=== PATIENT | female | born 1970 | race Caucasian/White ===

== ENCOUNTER 2018-07-30 05:16 | Emergency (ER) | payer MEDICAID, SELFPAY ==
[2018-07-30 05:17] VITALS: BP 180/108; PULSE 87; RESP 24; TEMP 36.8; O2SAT 95; BMI 57.9
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
[2018-07-30] MEDS: Naproxen 500 MG Tablet PO (05:38)
== END 2018-07-30 05:51 | disposition home or self-care (01) ==
PROVIDERS: Emergency Provider Emergency Medicine
DX: M23.91 Unspecified internal derangement of right knee (principal)
CPT/HCPCS: 99284

== ENCOUNTER 2018-11-27 10:29 | Emergency (ER) | payer MEDICAID, SELFPAY ==
[2018-11-27] VITALS (8 sets, daily range): BP systolic 170; BP diastolic 113; PULSE 87–100; RESP 14–22; TEMP 36.4; O2SAT 94–98; BMI 59.4
--- NOTE | 2018-11-27 10:48 | ED.DCSUM_ITS ---
- ER Visit Summary Date of Service: 11/27/18 Chief Complaint: Shortness of breath History of Present Illness: The patient is a 48 F with shortness of breath for the past 3-4 days. She had upper airway congestion which usually triggers her asthma, similar things happen this time. Last asthma exacerbation was 2 years ago. Physical Examination: Not appear in acute distress. She is speaking in full sentences. Her blood pressure is elevated. Moist mucous membranes, no obvious facial deformity No C-spine tenderness supple neck. Regular rate and rhythm without any obvious murmurs Bilateral wheezing, speaks in full sentences without severe respiratory distress Abdomen soft and nontender no guarding or rebound Moves all extremities without any difficulty or pain. Skin does not show any obvious rashes or lesions, no trauma. Alert oriented ?3 with no gross focal deficit Emergency Department Course and Treatment: She received nebulizers, she improved prednisone was given in the ED. I will give her prednisone for home. I believe she had an upper respiratory infection which caused her asthma exacerbation. She appears well and she will be discharged in stable condition. She did have high blood pressure in the ED and she was told to watch this so she can tell her physician and address it. Discharge stable condition Impression: [Asthma exacerbation] This note was generated with [employer] dictation software. It may contain incorrect words, spelling, and punctuation that were not noted in review of the chart prior to signing ED Disposition - Plan for ED Patient: Disposition: Home or Assisted Living Chief Complaint: Asthma Instructions: ED Reactive Airway Disease Prescriptions: Prednisone 60 mg PO DAILY #12 tab Referrals: [facility],Out of [NON-STAFF] - 5-7 Days
[2018-11-27] MEDS: Ipratropium/Albuterol Sulfate 3 ML AMPUL.NEB INHALATION ×2 (10:50→12:04)
[2018-11-27] MEDS: Albuterol 2.5 MG/3 ML VIAL.NEB. INHALATION ×3 (10:51→11:25)
[2018-11-27] MEDS: predniSONE 20 MG Tablet 60 MG PO (12:35)
== END 2018-11-27 12:39 | disposition home or self-care (01) ==
PROVIDERS: Emergency Provider Emergency Medicine
DX: J45.901 Unspecified asthma with (acute) exacerbation (principal); Z79.51 Long term (current) use of inhaled steroids
CPT/HCPCS: 94640; 99283

== ENCOUNTER 2019-07-18 13:31 | Emergency (ER) | payer MEDICAID, SELFPAY ==
[2018-11-27 10:31] VITALS: BMI 59.4
[2019-07-18 13:35] VITALS: BP 174/115; PULSE 101; RESP 18; TEMP 36.8; O2SAT 95; BMI 59.8
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
[2019-07-18 15:09] VITALS: BP 132/76; PULSE 76; RESP 18; O2SAT 99
== END 2019-07-18 15:10 | disposition home or self-care (01) ==
PROVIDERS: Emergency Provider Emergency Medicine
DX: S40.012A Contusion of left shoulder, initial encounter (principal); E66.9 Obesity, unspecified; K21.9 Gastro-esophageal reflux disease without esophagitis; Z87.891 Personal history of nicotine dependence; V43.62XA Car passenger injured in collision with other type car in traffic accident, initial encounter; Y93.I9 Activity, other involving external motion; Y92.89 Other specified places as the place of occurrence of the external cause; Y99.8 Other external cause status
CPT/HCPCS: 73030; 99284

== ENCOUNTER 2019-12-10 13:43 | Emergency (ER) | payer MEDICAID, SELFPAY ==
[2019-12-10 13:47] VITALS: BP 160/144; PULSE 109; RESP 20; TEMP 36.8; O2SAT 96; BMI 60.9
--- NOTE | 2019-12-10 14:30 | ED.DCSUM_ITS ---
- ER Visit Summary Date of Service: 12/10/19 Chief Complaint: [Sore throat] History of Present Illness: The patient is a 49 F [presents to the emergency department complaint of a sore throat x5 days. Patient also complains of nasal congestion. She is complaining of some ear pain bilaterally. She denies any fevers. Patient denies sick contacts. She has minimal cough.] Physical Examination: [HEENT-PERRLA, EOMI. Cranial nerves II through XII grossly intact. TMs clear. Mucous membranes moist. No adenopathy. Patient has mild pharyngeal erythema. Patient has edema of both nasal turbinates right greater than left. The midline and no trismus noted. Cardiovascular-regular rate and rhythm without murmur or ectopy Lungs-clear to auscultation, chest wall stable without crepitus or subcu emphysema Abdomen-normoactive bowel sounds, soft, nontender, no rebound or rigidity, no peritoneal signs. Extremities-intact ?4, normal range of motion, normal pulses, atraumatic] Test Results: [Rapid strep screen was negative.] Emergency Department Course and Treatment: [] Treatment Plan: [Patient will be given a prescription for Flonase nasal spray. Advised to push fluids.] Disposition: [Discharged home in stable condition] Impression: [Viral URI Nasal congestion] This note was generated with [employer] dictation software. It may contain incorrect words, spelling, and punctuation that were not noted in review of the chart prior to signing ED Disposition - Plan for ED Patient: Referrals: [facility] Doctor,Out of [Primary Care Provider] -
--- NOTE | 2019-12-10 14:32 | DCINST.ED_ITS ---
ED Disposition - Plan for ED Patient: Instructions: PHARYNGITIS, Viral Prescriptions: Fluticasone 0.05% [Flonase Nasal [place]] 1 spray NASAL BID #1 bottle Transmission Status: Pending to [facility] Referrals: [facility] Doctor,Out of [Primary Care Provider] - 3-5 Days
[2019-12-10 14:52] VITALS: BP 148/105; PULSE 87; RESP 18; O2SAT 97
== END 2019-12-10 14:53 | disposition home or self-care (01) ==
LOC: ED 14:08
PROVIDERS: Emergency Provider Emergency Medicine
DX: J06.9 Acute upper respiratory infection, unspecified (principal); R09.81 Nasal congestion; J45.909 Unspecified asthma, uncomplicated; Z79.51 Long term (current) use of inhaled steroids
CPT/HCPCS: 87880; 99282

== ENCOUNTER 2021-03-10 14:32 | Emergency (ER) | payer MEDICAID, SELFPAY ==
[2021-03-10 14:34] VITALS: BP 152/109; PULSE 72; RESP 18; TEMP 36.8; O2SAT 94; BMI 58.4
[2021-03-10 15:47] VITALS: PULSE 77; RESP 18; O2SAT 100
--- NOTE | 2021-03-10 15:56 | ED.VIS.DYS ---
History of Present Illness Chief Complaint: Asthma Informant: Patient Onset: 03-03 Activity at onset: Exertion Timing: Intermittent Quality: Wheezing Current Severity: Mild Maximum Severity: Moderate Worsened by: Exertion Relieved by: Albuterol, Rest Associated Symptoms: Cough - minor [employer]. Negative for: Fever Chest Pain: Tightness - when wheezing Narrative: 50-year-old female feels like she is having asthma symptoms for the last several days. She had this happen last year 2 in the spring, unknown if she has seasonal allergies or not. She denies any fevers, chills, headaches, COVID-19 exposure, COVID-19 history, she had the first COVID-19 vaccine 3 weeks ago and is due for the second 1 later this week. She denies any swelling in her legs. - Past Medical History (1) Asthma Status: Chronic Past Medical History - Allergies and Home Meds Allergies/Adverse Reactions: Allergies No Known Allergies Allergy (Verified 03/10/21 14:38) Primary Care Physician: [facility] [address] Doctor,Out of [Primary Care Provider] - Smoking Status: Former smoker Review of Systems General: Denies: Chills, Fever, Sweats Eyes: Denies: Visual changes - bilaterally, Diplopia ENT: Denies: Bilateral ear pain, Rhinorrhea, Sore throat Cardiovascular: Reports: Chest pain - Tightness when wheezing, feels like asthma. Denies: Palpitations Respiratory: Reports: Dyspnea, Cough, Dyspnea on exertion. Denies: Sputum, Orthopnea Gastrointestinal: Denies: Abdominal pain, Nausea, Vomiting, Diarrhea, Melena, Hematochezia Genitourinary: Denies: Dysuria, Hematuria, Frequency Musculoskeletal: Denies: Back pain, Swelling, Extremity Pain Skin: Denies: Rash, Wounds Neurological: Denies: Headache, Weakness, Numbness Physical Exam Vital Signs/Narrative: Vital Signs Temp Pulse Resp BP Pulse Ox 03/10/21 15:47 77 18 100 03/10/21 14:34 98.2 F 72 18 152/109 H 94 Inital Vital Signs reviewed: Yes General: Well nourished, Well developed, Obese, No Acute Distress - Conversive in full sentences Head: Normocephalic, Atraumatic Eyes: Perrl, EOMI ENT: Moist mucous membranes, No rhinorrhea Neck: Supple, Nontender, No JVD Cardiovascular: Regular rate, Regular rhythm, No murmurs. Negative for: Tachycardia Respiratory: No distress, Chest nontender, Wheezing - Very slight end expiratory, symmetric. Negative for: Rales, Rhonchi Abdomen: Soft, Nontender, Nondistended, Normal bowel sounds Back: Nontender, Normal Inspection Extremities: Nontender, No edema Skin: Normal color, No rash, No Trauma Neurological: Alert, Oriented x3, Cranial nerves II-XII grossly intact, Normal Strength, Normal Sensation, Normal Gait Psychological: Normal affect, Normal Mood Diagnostic/Tx/Re-eval - Medical Decision Making Patient is comfortable with a prescription for prednisone and close outpatient follow-up. She has an albuterol inhaler, there was a nursing note indicating that she needed a prescription, she states that is incorrect. We discussed reasons to return and she is comfortable with that plan. She was also given a prescription for cetirizine to help in case this is allergy-related. ED Disposition - Plan for ED Patient: Disposition: Home or Assisted Living Diagnosis: Asthma exacerbation Instructions: ED Asthma, Acute (Adult) Prescriptions: Cetirizine HCl [Allergy Relief] 10 mg PO DAILY #30 capsule Transmission Status: Pending to [facility] Prednisone [Deltasone] 40 mg PO DAILY #10 tablet Transmission Status: Pending to [facility] Referrals: [facility] [address] Doctor,Out of [Primary Care Provider] - 3-5 Days if not improving Additional Instructions: Prescription for prednisone: Start tomorrow Prescription for cetirizine: Take 1 daily, if your asthma is flared up due to allergies, this should help suppress
[2021-03-10] MEDS: predniSONE 20 MG Tablet 40 MG PO (16:16)
== END 2021-03-10 16:56 | disposition home or self-care (01) ==
LOC: ED 16:12
PROVIDERS: Emergency Provider Emergency Medicine
DX: J45.901 Unspecified asthma with (acute) exacerbation (principal); Z87.891 Personal history of nicotine dependence; E66.9 Obesity, unspecified
CPT/HCPCS: 99283

== ENCOUNTER 2021-07-11 16:07 | Emergency (ER) | payer MEDICAID, SELFPAY ==
[2021-07-11 16:09] VITALS: BP 135/64; PULSE 79; RESP 16; TEMP 36.2; O2SAT 97; BMI 52.7
--- NOTE | 2021-07-11 18:05 | EX.ED.DYSGE1 ---
HPI History of Present Illness Chief Complaint: GI Bleed Detail of Chief Complaint: Rectal bleeding Informant: patient Onset/Context/Timing Onset: Weeks Narrative Narrative: Patient presents with 2-week history of rectal pain. She states 4 days into her symptoms she had some rectal bleeding that resolved. Today she passed more blood rectally. No abdominal pain or cramping. She reports a history of hemorrhoids years ago. She had a colonoscopy 2 months ago that was unremarkable. [facility] Medical History Asthma Home Medications Symbicort 160-4.5 Mcg Inhaler 2 puff INHALATION DAILY 11/27/18 [History Last Taken 12/09/19] albuterol sulfate [Ventolin Hfa (SP)] 1 - 2 puff INHALATION Q4H PRN PRN 11/27/18 [History Last Taken 12/09/19] naproxen 500 mg PO BID PRN #20 tab 07/18/19 [Rx Last Taken 12/09/19] cyclobenzaprine 5 mg PO DAILY 12/10/19 [History Last Taken 12/09/19] fluticasone propionate 1 spray NASAL BID #1 bottle 12/10/19 [Rx Last Taken Unknown] pantoprazole 40 mg PO DAILY 12/10/19 [History Last Taken 12/09/19] pseudoephedrine HCl 240 mg PO DAILY 12/10/19 [History Last Taken 12/09/19] cetirizine 10 mg PO DAILY #30 capsule 03/10/21 [Rx Last Taken Unknown] prednisone 40 mg PO DAILY #10 tablet 03/10/21 [Rx Last Taken Unknown] hydrocortisone acetate [Anusol-HC] 25 mg IL BID PRN #6 ea 07/11/21 [Rx Last Taken Unknown] Allergy/AdvReac Type Severity Reaction Status Date / Time No Known Allergies Allergy Verified 07/11/21 16:10 Social History Smoking Status: Light Smoker (<10/day) ROS ROS ED Constitutional Constitutional ED: Denies chills or fever(s) Eyes Eyes: Denies change in vision ENT ENT ED: Denies sore throat Cardiovascular Cardiovascular: Denies chest pain Respiratory/Chest Respiratory/Chest: Denies cough or dyspnea Gastrointestinal Gastrointestinal: Reports other Details: Rectal pain ; Denies abdominal pain, diarrhea, nausea or vomiting Genitourinary Genitourinary ED: Denies dysuria Musculoskeletal Musculoskeletal: Denies back pain Integumentary Denies rash Neurologic Neurologic: Denies headache(s) or weakness Psychiatric Psychiatric: Denies anxiety or depression Allergic/Immunologic Allergic/Immunologic ED: Denies urticaria EXAM Physical Exam Const Vital Signs: 07/11/21 16:09 Temperature 97.2 F L Temperature Source Temporal Pulse Rate 79 Respiratory Rate 16 Blood Pressure 135/64 H Blood Pressure Mean 87 Pulse Ox 97 Oxygen Delivery Method Room Air Positive well nourished and well developed General Appearance ED: well developed HEENT Reports normocephalic and head/scalp atraumatic Eyes PERRL and EOMs intact bilaterally Neck supple Chest Wall inspection of chest normal and palpation of chest normal Resp normal respiratory effort and clear to auscultation bilaterally Cardio regular rate and regular rhythm GI normal to inspection, nondistended, normoactive bowel sounds GI Narrative: Rectal exam reveals a very small noninflamed hemorrhoid externally. No obvious blood. Palpation: soft Back/Spine no CVA tenderness Extremity normal to inspection Neuro oriented x3 and no sensory deficits noted Sensorium / Orientation: alert Motor Exam: strength 5/5 throughout Psych mental status grossly normal Skin no rashes or lesions noted MDM MDM MDM Narrative Medical decision making narrative: Lab work is obtained. Lab Data Attestation: I reviewed the patient's lab results. Labs: Laboratory Results - last 24 hr 07/11/21 07/11/21 18:20 18:20 WBC 5.8 RBC 4.58 Hgb 14.0 Hct 40.9 MCV 89.3 MCH 30.6 MCHC 34.2 RDW Std Deviation 38.1 RDW Coeff of Carisa 11.9 Plt Count 238 MPV 10.7 Immature Gran % (Auto) 0.300 Neut % (Auto) 55.7 Lymph % (Auto) 33.6 [place] % (Auto) 8.3 Eos % (Auto) 1.6 Baso % (Auto) 0.5 Absolute Neuts (auto) 3.2 Absolute Lymphs (auto) 1.94 Nucleated RBC % 0 Sodium 140 Potassium 4.2 Chloride 106 Carbon Dioxide 29.0 Anion Gap 5 BUN 17 Creatinine 1.08 H Estim Creat Clear Calc 49.29 Est GFR (MDRD) Af Amer 69 Est GFR (MDRD) Non-Af 57 L BUN/Creatinine Ratio 15.7 Glucose 108 H Calcium 9.3 Treatment and Re-Evaluation Comments:: Labs are unremarkable. Normal BUN and normal hemoglobin. Patient states she did go to the restroom while here and had no further bleeding. Patient be given a prescription for Anusol HC suppositories as needed. She will follow up with the physician that did her recent colonoscopy if she has continued problems. Discharge Plan Triage Chief Complaint: GI Bleed ED Provider: Danielle Gerard Dx/Rx/DC Orders Clinical Impression: Pain, rectal Instructions: ED Hemorrhoids Prescriptions: New hydrocortisone acetate [Anusol-HC] 25 mg suppository 25 mg [place] BID PRN (Reason: hemorrhoids) Qty: 6 RF: 0 No Action albuterol sulfate [Ventolin HFA] 1 INHALER inhaler 1 - 2 puff inhalation Q4H PRN PRN (Reason: Asthma) RF: 0 Symbicort 160-4.5 Mcg Inhaler 2 PUFF 2 puff inhalation DAILY RF: 0 naproxen 500 MG tablet 500 mg PO BID PRN Qty: 20 RF: 0 pantoprazole 40 MG tablet 40 mg PO DAILY RF: 0 pseudoephedrine HCl 240 MG tablet extended release 24 hr 240 mg PO DAILY RF: 0 cyclobenzaprine 5 MG tablet 5 mg PO DAILY RF: 0 fluticasone propionate 1 SPRAY spray,suspension 1 spray NASAL BID Qty: 1 RF: 0 prednisone 20 MG tablet 40 mg PO DAILY Qty: 10 RF: 0 cetirizine 10 MG capsule 10 mg PO DAILY Qty: 30 RF: 0 Referrals: Isabela Mcclain [Other] Activity Restrictions/Additional Instructions: As discussed, follow-up with the GI doctor he recently saw for further ongoing symptoms. Disposition Disposition: Home, Self Care
[2021-07-11 18:29] LABS: Absolute Lymphocyte Count 1.94 X10^3/uL (0.83-4.51); Absolute Neutrophil Count 3.2 X10^3/uL (2.0-7.7); Basophil# 0.03 X10^3/uL; Basophil% 0.5 % (0-1); Eosinophil# 0.09 X10^3/uL; Eosinophils% 1.6 % (0-5); Hematocrit 40.9 % (37-47); Lymphocyte # 1.94 X10^3/ul (0.83-4.51); Lymphocyte % 33.6 % (19-41); Mean Corp Hgb Conc 34.2 g/dL (32-36); Mean Corpuscular Hgb 30.6 pg (27.0-32.0); Mean Corpuscular Volume 89.3 fL (81-99); Mean Platelet Vol. 10.7 fl (6.2-12.0); Monocyte# 0.48 X10^3/uL; Monocyte% 8.3 % (0-10); NRBC Flagged by Analyzer 0 % (0-5); Neutrophil # 3.21 X10^3/uL (2.7-7.7); Neutrophil % 55.7 % (47-70); Platelet Count 238 K/mm3 (150-450); RBC Distribution Width CV 11.9 % (11.6-14.6); RBC Distribution Width SD 38.1 fl (35.1-43.9); Red Blood Count 4.58 M/mm3 (4.2-5.4); White Blood Count 5.8 K/mm3 (4.4-11.0)
[2021-07-11 18:40] LABS: Anion Gap 5 (5-15); BUN 17 mg/dL (7-18); BUN/Creat Ratio 15.7 RATIO (10-20); Calcium,Total 9.3 mg/dL (8.5-10.1); Chloride 106 mmol/L (98-107); Creatinine, Serum 1.08 mg/dL (0.55-1.02); EST Glomerular Filtration Rate 57 mL/min (>60); Est Glom Filt Rate - Afr Amer 69 mL/min (>60); Estimated Creatinine Clearance 49.29 ml/min; Glucose 108 mg/dL (74-106); Potassium 4.2 mmol/L (3.5-5.1); Sodium Level 140 mmol/L (136-145)
[2021-07-11 20:01] VITALS: BP 119/75; PULSE 63; RESP 12; O2SAT 95
== END 2021-07-11 20:02 | disposition home or self-care (01) ==
PROVIDERS: Emergency Provider Emergency Medicine
DX: K62.89 Other specified diseases of anus and rectum (principal); J45.909 Unspecified asthma, uncomplicated; Z79.51 Long term (current) use of inhaled steroids; F17.200 Nicotine dependence, unspecified, uncomplicated
CPT/HCPCS: 80048; 85025; 99283; A4216

== ENCOUNTER 2022-08-17 11:12 | Emergency (ER) | payer MEDICAID, SELFPAY ==
[2022-08-17 11:13] VITALS: BP 168/85; PULSE 80; RESP 16; TEMP 36.7; O2SAT 99; BMI 57.0
--- NOTE | 2022-08-17 11:53 | ED.VIS.DYS ---
HPI History of Present Illness Chief Complaint: Asthma Narrative Narrative: 51-year-old female presenting with asthma exacerbation. She states has been a little bit more short of breath for the last couple of weeks. She does not have a cough, fever, chills, body aches. She has been using her albuterol inhaler but states she has been using this more frequently. She has not contacted her primary care provider because is an hour and 50 minutes away. She states she moved to [place] and now she has trouble getting to appointments. Patient also states that on her last visit she could not afford her home nebulizer. She does not have a home nebulizer. She denies any chest pain. [facility] Medical History (Updated 08/17/22 @ 12:33 by Africa Hidalgo) Asthma GERD (gastroesophageal reflux disease) CAVAZOS (nonalcoholic steatohepatitis) Home Medications albuterol sulfate 90 mcg/actuation aerosol inhaler (Ventolin HFA) 1 - 2 puff inhalation Q4H PRN PRN Asthma 11/27/18 [History Last Taken 12/09/19] pantoprazole 40 mg tablet,delayed release 40 mg PO DAILY 12/10/19 [History Last Taken 12/09/19] budesonide-formoterol HFA 160 mcg-4.5 mcg/actuation aerosol inhaler (Symbicort) 2 puff inhalation BID 08/17/22 [History Last Taken Unknown] famotidine 20 mg tablet 20 mg PO DAILY PRN gerd 08/17/22 [History Last Taken Unknown] losartan 100 mg tablet 100 mg PO DAILY 08/17/22 [History Last Taken Unknown] melatonin 10 mg tablet 10 mg PO QHS 08/17/22 [History Last Taken Unknown] metoprolol succinate 50 mg tablet,extended release 24 hr 50 mg PO DAILY 08/17/22 [History Last Taken Unknown] multivitamin 1 tab PO DAILY 08/17/22 [History Last Taken Unknown] omega-3 fatty acids 1,000 mg PO DAILY 08/17/22 [History Last Taken Unknown] prednisone 50 mg tablet 50 mg PO DAILY #5 tabs 08/17/22 [Rx Last Taken Unknown] rosuvastatin 40 mg tablet 40 mg PO DAILY 08/17/22 [History Last Taken Unknown] vitamin B complex 1 tab PO DAILY 08/17/22 [History Last Taken Unknown] Allergy/AdvReac Type Severity Reaction Status Date / Time No Known Allergies Allergy Verified 08/17/22 11:15 Surgical History (Updated 08/17/22 @ 12:33 by Africa Hidalgo) History of History of cholecystectomy Social History Smoking Status: Light Smoker (<10/day) ROS ROS ED Constitutional Constitutional ED: Denies chills or fever(s) Eyes Eyes: Denies blurry vision or change in vision ENT ENT ED: Denies rhinorrhea or sore throat Cardiovascular Cardiovascular: Denies chest pain or palpitations Respiratory/Chest Respiratory/Chest: Reports dyspnea; Denies cough Gastrointestinal Gastrointestinal: Denies abdominal pain or constipation Genitourinary Genitourinary ED: Denies dysuria or hematuria Musculoskeletal Musculoskeletal: Denies arthralgias or back pain Integumentary Denies abscess or Abrasions Neurologic Neurologic: Denies headache(s) or paresthesias Psychiatric Psychiatric: Denies anxiety or depression EXAM Physical Exam Const Vital Signs: 08/17/22 11:13 08/17/22 12:02 08/17/22 12:31 Temperature 98.1 F Temperature Source Temporal Pulse Rate 80 76 Respiratory Rate 16 18 Respiratory Effort Normal Non-Labored Respiratory Depth Normal Respiratory Pattern Normal Normal Blood Pressure 168/85 H Blood Pressure Mean 112 Pulse Ox 99 Oxygen Delivery Method Room Air Room Air 08/17/22 14:25 Temperature Temperature Source Pulse Rate 72 Respiratory Rate 16 Respiratory Effort Respiratory Depth Respiratory Pattern Blood Pressure 116/64 Blood Pressure Mean Pulse Ox 97 Oxygen Delivery Method Positive well nourished General Appearance ED: NAD; Negative for pallor HEENT Reports moist mucous membranes Eyes PERRL and EOMs intact bilaterally Resp normal respiratory effort Auscultation: wheezes expiratory wheezes (Faint) Cardio regular rate and regular rhythm Neuro oriented x3 and CN's II-XII intact bilaterally Sensorium / Orientation: alert Speech: speech normal Motor Exam: strength 5/5 throughout Psych mental status grossly normal Skin General Skin Exam: Negative for jaundice or pallor MDM MDM MDM Narrative Medical decision making narrative: Patient has a very faint wheeze on examination in the bilateral lung clemons. She is given breathing treatments and prednisone. I do not believe she is any blood work or imaging. Patient feels very much improved after breathing treatments and prednisone. I feel she is safe to be discharged home. I will provide a prednisone burst. She has an albuterol inhaler at home. She states he is going to talk to her primary care physician about home nebulizers. She is discharged in stable condition. Impression: 1. Asthma exacerbation Lab Data Attestation: I reviewed the patient's lab results. Discharge Plan Triage Chief Complaint: Asthma ED Provider: Iglesia Kohler Dx/Rx/DC Orders Instructions: ED Asthma, Acute (Adult) Prescriptions: New prednisone 50 mg tablet 50 mg PO DAILY Qty: 5 0RF No Action albuterol sulfate [Ventolin HFA] 1 INHALER inhaler 1 - 2 puff inhalation Q4H PRN PRN (Reason: Asthma) pantoprazole 40 MG tablet 40 mg PO DAILY multivitamin Tablet 1 tab PO DAILY metoprolol succinate 50 mg tablet extended release 24 hr 50 mg PO DAILY Label Comments: take 1 tablet by mouth once daily famotidine 20 mg tablet 20 mg PO DAILY PRN (Reason: gerd) Label Comments: take 1 tablet by mouth twice a day if needed for REFLUX OR UPPER ABDOMINAL DISCOMFORT vitamin B complex Tablet 1 tab PO DAILY losartan 100 mg tablet 100 mg PO DAILY Label Comments: take 1 tablet by mouth once daily [place] 3 Capsule 1,000 mg PO DAILY rosuvastatin 40 mg tablet 40 mg PO DAILY Label Comments: take 1 tablet by mouth once daily budesonide-formoterol [Symbicort] 160-4.5 mcg/actuation Hfa Aerosol Inhaler 2 puff INHALATION BID melatonin 10 mg Tablet 10 mg PO QHS Primary Care Provider: Isabela Mcclain Referrals: Isabela Mcclain [Other] Disposition Disposition: Home, Self Care Discharge Date/Time: 08/17/22 14:28
[2022-08-17] MEDS: Ipratropium/Albuterol Sulfate 3 ML AMPUL.NEB INHALATION (11:59)
[2022-08-17 12:02] VITALS: PULSE 76; RESP 18
[2022-08-17] MEDS: Albuterol 2.5 MG/3 ML VIAL.NEB. INHALATION (12:04)
[2022-08-17] MEDS: predniSONE 20 MG Tablet 60 MG PO (12:30)
[2022-08-17 12:31] VITALS: O2SAT 99
[2022-08-17 14:25] VITALS: BP 116/64; PULSE 72; RESP 16; O2SAT 97
== END 2022-08-17 14:28 | disposition home or self-care (01) ==
PROVIDERS: Emergency Provider Student in an Organized Health Care Education/Training Program; Visit Provider Student in an Organized Health Care Education/Training Program
DX: J45.901 Unspecified asthma with (acute) exacerbation (principal); F17.200 Nicotine dependence, unspecified, uncomplicated; Z79.52 Long term (current) use of systemic steroids
CPT/HCPCS: 94640; 99283

== ENCOUNTER 2022-09-05 21:38 | Emergency (ER) | payer MEDICAID, SELFPAY ==
[2022-09-05 21:39] VITALS: BP 161/96; PULSE 89; RESP 20; TEMP 36.6; O2SAT 98; BMI 57.7
--- NOTE | 2022-09-05 22:19 | EKG12_ITS ---
Test Reason : DYSRHYTHMIA Blood Pressure : / mmHG Vent. Rate : 084 BPM Atrial Rate : 084 BPM P-R Int : 174 ms QRS Dur : 088 ms QT Int : 382 ms P-R-T Axes : 067 003 036 degrees QTc Int : 451 ms Normal sinus rhythm Normal ECG Confirmed by STEPHEN MERRILL, ROD ([id number]), publishing editor PHILOMENA LEMONS ([id number]) on 09/07/2022 9:32:46 AM Referred By: PL Confirmed By:ROD MITCHELL MD
--- NOTE | 2022-09-05 22:21 | ED.VIS.GI ---
HPI HPI - GI History of Present Illness Chief Complaint: Abd Pain Informant: patient Narrative Narrative: Patient states she is having an exacerbation of her gastritis. She states she has had problems with gastritis and reflux for about 2 years. She has had several scopes. She is on both Pepcid and pantoprazole. She has had a URI recently. She was on a course of prednisone. She has then been taking [id number] decongestant and herbal teas. She thinks this is bothering her stomach. She has increased belching and some burning in the epigastric. She denies chest pain or shortness of breath. She denies acid drinks or tomato foods recently. She has had prior cholecystectomy [facility] Medical History Asthma GERD (gastroesophageal reflux disease) CAVAZOS (nonalcoholic steatohepatitis) Home Medications albuterol sulfate 90 mcg/actuation aerosol inhaler (Ventolin HFA) 1 - 2 puff inhalation Q4H PRN PRN Asthma 11/27/18 [History Last Taken 12/09/19] pantoprazole 40 mg tablet,delayed release 40 mg PO DAILY 12/10/19 [History Last Taken 12/09/19] budesonide-formoterol HFA 160 mcg-4.5 mcg/actuation aerosol inhaler (Symbicort) 2 puff inhalation BID 08/17/22 [History Last Taken Unknown] famotidine 20 mg tablet 20 mg PO DAILY PRN gerd 08/17/22 [History Last Taken Unknown] losartan 100 mg tablet 100 mg PO DAILY 08/17/22 [History Last Taken Unknown] melatonin 10 mg tablet 10 mg PO QHS 08/17/22 [History Last Taken Unknown] metoprolol succinate 50 mg tablet,extended release 24 hr 50 mg PO DAILY 08/17/22 [History Last Taken Unknown] multivitamin 1 tab PO DAILY 08/17/22 [History Last Taken Unknown] omega-3 fatty acids 1,000 mg PO DAILY 08/17/22 [History Last Taken Unknown] prednisone 50 mg tablet 50 mg PO DAILY #5 tabs 08/17/22 [Rx Last Taken Unknown] rosuvastatin 40 mg tablet 40 mg PO DAILY 08/17/22 [History Last Taken Unknown] vitamin B complex 1 tab PO DAILY 08/17/22 [History Last Taken Unknown] Allergy/AdvReac Type Severity Reaction Status Date / Time No Known Allergies Allergy Verified 09/05/22 21:43 Surgical History History of History of cholecystectomy Social History Smoking Status: Former smoker ROS ROS ED Constitutional Constitutional ED: Denies chills or fever(s) ENT ENT ED: Denies rhinorrhea Cardiovascular Cardiovascular: Denies chest pain or palpitations Respiratory/Chest Respiratory/Chest: Denies cough, dyspnea or dyspnea on exertion Gastrointestinal Gastrointestinal: Reports abdominal pain; Denies nausea or vomiting Genitourinary Genitourinary ED: Denies dysuria Musculoskeletal Musculoskeletal: Denies back pain Integumentary Denies rash Endocrine Endocrinology: Denies polydipsia or polyuria Hematologic/Lymphatic Hematologic/Lymphatic: Denies easy bleeding or easy bruising Allergic/Immunologic Allergic/Immunologic ED: Denies urticaria EXAM Physical Exam Const Vital Signs: 09/05/22 21:39 Temperature 98 F Temperature Source Temporal Pulse Rate 89 Respiratory Rate 20 H Blood Pressure 161/96 H Blood Pressure Mean 117 Pulse Ox 98 Oxygen Delivery Method Room Air Positive well nourished and well developed General Appearance ED: well developed and NAD HEENT Reports moist mucous membranes Eyes General Eye ED: Negative for scleral icterus Neck no lymphadenopathy Resp normal respiratory effort and clear to auscultation bilaterally Resp Narrative: No pain with deep breath. Auscultation: Negative for rales, rhonchi or wheezes Cardio regular rate and regular rhythm GI non-tender and non-distended GI Narrative: Minimal epigastric tenderness without rebound or guarding. No tenderness in other areas. No rashes or skin changes noted Auscultation: normoactive bowel sounds Back/Spine no CVA tenderness Extremity full ROM Neuro Sensorium / Orientation: alert Psych mental status grossly normal Skin no wounds MDM MDM MDM Narrative Medical decision making narrative: Patient's blood work shows normal CBC. Electrolytes are overall normal other than mild decreased potassium. She does have increased liver function test but she has a history of Cavazos. She is not having right upper quadrant pain. Lipase is normal. Patient does feel a lot better with the meds she got here. I explained that she can take some Mylanta or Maalox at home in addition to her meds. Her troponin was also unmeasurable after a more than 5 to 6 hours of symptoms. Lab Data Attestation: I reviewed the patient's lab results. Labs: Laboratory Results - last 24 hr 09/05/22 09/05/22 22:00 22:00 WBC 5.7 RBC 4.56 Hgb 13.9 Hct 41.3 MCV 90.6 MCH 30.5 MCHC 33.7 RDW Std Deviation 42.6 RDW Coeff of Carisa 13.0 Plt Count 152 MPV 10.7 Immature Gran % (Auto) 0.400 Neut % (Auto) 70.6 H Lymph % (Auto) 17.0 L [place] % (Auto) 10.7 H Eos % (Auto) 0.9 Baso % (Auto) 0.4 Absolute Neuts (auto) 4.0 Absolute Lymphs (auto) 0.97 Nucleated RBC % 0 Sodium 139 Potassium 3.4 L Chloride 103 Carbon Dioxide 30.0 Anion Gap 6 BUN 13 Creatinine 0.98 Estim Creat Clear Calc 53.11 Est GFR (MDRD) Af Amer 77 Est GFR (MDRD) Non-Af 64 BUN/Creatinine Ratio 13.3 Glucose 112 H Calcium 8.9 Total Bilirubin 1.90 H AST 136 H ALT 63 H Alkaline Phosphatase 134 H Troponin I High Sens < 3 L Total Protein 8.0 Albumin 3.9 Globulin 4.1 Albumin/Globulin Ratio 1.0 Lipase 65 L EKG Initial EKG: Comments: EKG done for epigastric pain and 52-year-old female and read by me shows normal sinus rhythm with overall rate of 84. EKG was done while she has symptoms. No ectopy. No acute ST elevation or depression. IA interval, QRS duration and QTc are normal. Discharge Plan Triage Chief Complaint: Abd Pain ED Provider: Shad Ozuna Dx/Rx/DC Orders Clinical Impression: Acute gastritis Instructions: ED Gastritis (Adult) Prescriptions: No Action albuterol sulfate [Ventolin HFA] 1 INHALER inhaler 1 - 2 puff inhalation Q4H PRN PRN (Reason: Asthma) pantoprazole 40 MG tablet 40 mg PO DAILY multivitamin Tablet 1 tab PO DAILY metoprolol succinate 50 mg tablet extended release 24 hr 50 mg PO DAILY Label Comments: take 1 tablet by mouth once daily famotidine 20 mg tablet 20 mg PO DAILY PRN (Reason: gerd) Label Comments: take 1 tablet by mouth twice a day if needed for REFLUX OR UPPER ABDOMINAL DISCOMFORT vitamin B complex Tablet 1 tab PO DAILY losartan 100 mg tablet 100 mg PO DAILY Label Comments: take 1 tablet by mouth once daily [place] 3 Capsule 1,000 mg PO DAILY rosuvastatin 40 mg tablet 40 mg PO DAILY Label Comments: take 1 tablet by mouth once daily budesonide-formoterol [Symbicort] 160-4.5 mcg/actuation Hfa Aerosol Inhaler 2 puff INHALATION BID melatonin 10 mg Tablet 10 mg PO QHS prednisone 50 mg tablet 50 mg PO DAILY Qty: 5 0RF Primary Care Provider: MONICA WALKER Referrals: MONICA WALKER [Other] - 3-5 Days if not improving Disposition Disposition: Home, Self Care
[2022-09-05 22:27] LABS: Absolute Lymphocyte Count 0.97 X10^3/uL (0.83-4.51); Basophil# 0.02 X10^3/uL; Basophil% 0.4 % (0-1); Eosinophil# 0.05 X10^3/uL; Eosinophils% 0.9 % (0-5); Hematocrit 41.3 % (37-47); Hemoglobin 13.9 g/dL (12.0-15.0); Lymphocyte # 0.97 X10^3/ul (0.83-4.51); Mean Corp Hgb Conc 33.7 g/dL (32-36); Mean Corpuscular Hgb 30.5 pg (27.0-32.0); Mean Corpuscular Volume 90.6 fL (81-99); Mean Platelet Vol. 10.7 fl (6.2-12.0); Monocyte# 0.61 X10^3/uL; Monocyte% 10.7 % (0-10); NRBC Flagged by Analyzer 0 % (0-5); Neutrophil # 4.03 X10^3/uL (2.7-7.7); Neutrophil % 70.6 % (47-70); Platelet Count 152 K/mm3 (150-450); RBC Distribution Width SD 42.6 fl (35.1-43.9); Red Blood Count 4.56 M/mm3 (4.2-5.4); White Blood Count 5.7 K/mm3 (4.4-11.0)
[2022-09-05] MEDS: Mag Hydrox/Al Hydrox/Simeth 30 ML UDC PO (22:28)
[2022-09-05 22:46] LABS: AST(SGOT) 136 U/L (15-37); Alanine Aminotransfer ALT/SGPT 63 U/L (13-56); Albumin, Serum 3.9 g/dL (3.2-5.0); Alkaline Phosphatase 134 U/L (45-117); Anion Gap 6 (5-15); BUN 13 mg/dL (7-18); BUN/Creat Ratio 13.3 RATIO (10-20); Calcium,Total 8.9 mg/dL (8.5-10.1); Chloride 103 mmol/L (98-107); Creatinine, Serum 0.98 mg/dL (0.55-1.02); EST Glomerular Filtration Rate 64 mL/min (>60); Est Glom Filt Rate - Afr Amer 77 mL/min (>60); Estimated Creatinine Clearance 53.11 ml/min; Globulin 4.1 g/dL (2.2-4.2); Glucose 112 mg/dL (74-106); Lipase 65 U/L (73-393); Potassium 3.4 mmol/L (3.5-5.1); Sodium Level 139 mmol/L (136-145); Troponin-I HS < 3 pg/mL (3.0-54.0)
[2022-09-05 23:36] VITALS: BP 148/67; PULSE 78; RESP 18; O2SAT 97
== END 2022-09-05 23:38 | disposition home or self-care (01) ==
PROVIDERS: Emergency Provider Emergency Medicine; Visit Provider Emergency Medicine
DX: K29.00 Acute gastritis without bleeding (principal); K21.9 Gastro-esophageal reflux disease without esophagitis; R14.2 Eructation; J45.909 Unspecified asthma, uncomplicated; Z87.891 Personal history of nicotine dependence; Z79.899 Other long term (current) drug therapy
CPT/HCPCS: 80053; 83690; 84484; 85025; 93005; 96365; 99284; A4216; J3490

== ENCOUNTER 2023-09-13 20:11 | Emergency (ER) | payer MEDICAID, SELFPAY ==
[2023-09-13 20:13] VITALS: BP 152/87; PULSE 95; RESP 16; TEMP 36.1; O2SAT 97; BMI 62.1
--- NOTE | 2023-09-13 20:22 | EX.ED.DYSGE1 ---
HPI <MAME Hi - Last Filed: 09/13/23 20:38> History of Present Illness Chief Complaint: Ear Problem Narrative Narrative: 53-year-old female developed left ear pain and a congested feeling after waking up this morning. No fever or other upper respiratory symptoms. No trauma or drainage. PFSH <MAME Hi - Last Filed: 09/13/23 20:38> [facility] Medical History Asthma GERD (gastroesophageal reflux disease) CAVAZOS (nonalcoholic steatohepatitis) Home Medications albuterol sulfate 90 mcg/actuation aerosol inhaler (Ventolin HFA) 1 - 2 puff inhalation Q4H PRN PRN Asthma 11/27/18 [History Last Taken 12/09/19] pantoprazole 40 mg tablet,delayed release 40 mg PO DAILY 12/10/19 [History Last Taken 12/09/19] budesonide-formoterol HFA 160 mcg-4.5 mcg/actuation aerosol inhaler (Symbicort) 2 puff inhalation BID 08/17/22 [History Last Taken Unknown] famotidine 20 mg tablet 20 mg PO DAILY PRN gerd 08/17/22 [History Last Taken Unknown] losartan 100 mg tablet 100 mg PO DAILY 08/17/22 [History Last Taken Unknown] melatonin 10 mg tablet 10 mg PO QHS 08/17/22 [History Last Taken Unknown] metoprolol succinate 50 mg tablet,extended release 24 hr 50 mg PO DAILY 08/17/22 [History Last Taken Unknown] multivitamin 1 tab PO DAILY 08/17/22 [History Last Taken Unknown] omega-3 fatty acids 1,000 mg PO DAILY 08/17/22 [History Last Taken Unknown] prednisone 50 mg tablet 50 mg PO DAILY #5 tabs 08/17/22 [Rx Last Taken Unknown] rosuvastatin 40 mg tablet 40 mg PO DAILY 08/17/22 [History Last Taken Unknown] vitamin B complex 1 tab PO DAILY 08/17/22 [History Last Taken Unknown] Allergy/AdvReac Type Severity Reaction Status Date / Time No Known Allergies Allergy Verified 09/13/23 20:13 Surgical History History of History of cholecystectomy Social History Smoking Status: Former smoker ROS <MAME Hi - Last Filed: 09/13/23 20:38> ROS ED ROS Narrative Constitutional: Negative for fever, chills, malaise. ENT:Positive for ear pain. Negative for sore throat, rhinorrhea. Respiratory: Negative for shortness of breath, cough. Neuro: Negative for headache. EXAM <MAME Hi - Last Filed: 09/13/23 20:38> Physical Exam Narrative Exam Narrative: CONST: Patient sitting in no acute distress. EYES: Normal inspection. ENT: Normal external auricles, left ear canal red and edematous, normal TMs bilaterally. No mastoid swelling erythema or tenderness. Nares clear, normal posterior oropharynx. NECK: Normal inspection. RESP: No respiratory distress, CTAB. CVS: Regular rate and rhythm, no murmur, no gallop. SKIN: Color normal, no rash, warm, dry, intact. EXTREMITIES: Normal appearance, no pedal edema. NEURO: Oriented x4. PSYCH: Normal affect. Const Vital Signs: 09/13/23 20:13 Temperature 97 F L Temperature Source Temporal Pulse Rate 95 Respiratory Rate 16 Blood Pressure 152/87 H Blood Pressure Mean 108 Pulse Ox 97 <Dr. Shad Ozuna MD - Last Filed: 09/13/23 22:48> Physical Exam Const Vital Signs: 09/13/23 20:13 Temperature 97 F L Temperature Source Temporal Pulse Rate 95 Respiratory Rate 16 Blood Pressure 152/87 H Blood Pressure Mean 108 Pulse Ox 97 [facility] <MAME Hi - Last Filed: 09/13/23 20:38> [facility] Narrative Medical decision making narrative: Patient presents with left ear pain and clinically has otitis externa. There is no signs of perforation or otitis media so she is appropriate for antibiotic drops. No signs of mastoiditis. First dose of neomycin/polymyxin/hydrocortisone drops were applied here she was given instructions for use at home x1 week. She was discharged in stable condition. <Dr. Shad Ozuna MD - Last Filed: 09/13/23 22:48> [facility] Narrative Medical decision making narrative: Patient presents with left ear pain and clinically has otitis externa. There is no signs of perforation or otitis media so she is appropriate for antibiotic drops. No signs of mastoiditis. First dose of neomycin/polymyxin/hydrocortisone drops were applied here she was given instructions for use at home x1 week. She was discharged in stable condition. I have personally performed a face to face assessment of the patient and have reviewed the ED Note. I performed a substantive portion of the visit including all aspects of the following. My aguilar findings include: History: Patient complains of left ear pain. She does use Steven pins to clean out her ears and has done that recently. But no bleeding. Mild muffling of the hearing on the left. No fevers chills sweats headache nausea or vomiting. Exam: Patient is nontoxic. No external swelling. She does have some tenderness with palpation of the tragus though. Mastoid is nontender. She does have some erythema and canal swelling. Its more in the mid to inner canal then it is on the outside. But the tympanic membrane looks good. Medical Decision Making: Patient will be treated for an otitis externa. Discharge Plan Triage Chief Complaint: Ear Problem ED Midlevel Provider: Kimberly Chu ED Provider: Shad Ozuna Dx/Rx/DC Orders Clinical Impression: External otitis of left ear Instructions: ED External Ear Infection (Adult) Prescriptions: No Action albuterol sulfate [Ventolin HFA] 1 INHALER inhaler 1 - 2 puff inhalation Q4H PRN PRN (Reason: Asthma) pantoprazole 40 MG tablet 40 mg PO DAILY multivitamin Tablet 1 tab PO DAILY metoprolol succinate 50 mg tablet extended release 24 hr 50 mg PO DAILY Patient Comments: take 1 tablet by mouth once daily famotidine 20 mg tablet 20 mg PO DAILY PRN (Reason: gerd) Patient Comments: take 1 tablet by mouth twice a day if needed for REFLUX OR UPPER ABDOMINAL DISCOMFORT vitamin B complex Tablet 1 tab PO DAILY losartan 100 mg tablet 100 mg PO DAILY Patient Comments: take 1 tablet by mouth once daily [place] 3 Capsule 1,000 mg PO DAILY rosuvastatin 40 mg tablet 40 mg PO DAILY Patient Comments: take 1 tablet by mouth once daily budesonide-formoterol [Symbicort] 160-4.5 mcg/actuation Hfa Aerosol Inhaler 2 puff INHALATION BID melatonin 10 mg Tablet 10 mg PO QHS prednisone 50 mg tablet 50 mg PO DAILY Qty: 5 0RF Primary Care Provider: MONICA WALKER Referrals: NOT,DEFINED [Non-Staff] - Activity Restrictions/Additional Instructions: Put 4 drops into your left ear 4 times a day for 7 days. Take Tylenol ibuprofen as needed for pain. Disposition Disposition: Home, Self Care Discharge Date/Time: 09/13/23 20:59
[2023-09-13] MEDS: Neomycin/Polymyxin/Dexameth 5ML OPTH.BTL 4 DRP OTIC (20:57)
== END 2023-09-13 20:59 | disposition home or self-care (01) ==
LOC: ED 20:52
PROVIDERS: Emergency Provider Emergency Medicine; Visit Provider Emergency Medicine
DX: H60.92 Unspecified otitis externa, left ear (principal); Z87.891 Personal history of nicotine dependence; J45.909 Unspecified asthma, uncomplicated
CPT/HCPCS: 99282

== ENCOUNTER 2023-09-20 10:22 | Emergency (ER) | payer MEDICAID, SELFPAY ==
[2023-09-20 10:24] VITALS: BP 154/103; PULSE 89; RESP 20; TEMP 36.4; O2SAT 99; BMI 61.5
[2023-09-20] MEDS: Amox/Clavulanate 875 MG Tablet PO (11:29)
[2023-09-20] MEDS: Ciprofloxacin 0.3% 2.5ml Bottle 2 DRP LEFT EAR (11:29)
--- NOTE | 2023-09-20 11:30 | EX.ED.VIS.UR ---
HPI HPI - URI History of Present Illness Chief Complaint: Ear Problem Informant: patient Narrative Narrative: Patient is a 53-year-old female with history of hyperlipidemia, GERD, CAVAZOS and asthma presenting with worsening left ear pain, left nasal congestion and decreased hearing on the left ear. She was diagnosed with COVID-19 on 09/14 which is when her symptoms started. She has had a couple days of fever and chills with that since resolved. She was seen at our ER on the and diagnosed with otitis externa and put on Polymycin B. She has continued to have ear pain with progression of worsening ear pressure, the nasal congestion and decreased hearing. Denies any new fevers. No other complaints or concerns at this time. Has been using a Polymycin drops with no significant relief. ROS ROS ED Constitutional Constitutional ED: Denies chills or fever(s) Eyes Eyes: Denies blurry vision or change in vision ENT ENT ED: Reports ear pain left and rhinorrhea; Denies sore throat Cardiovascular Cardiovascular: Denies chest pain Respiratory/Chest Respiratory/Chest: Denies cough Gastrointestinal Gastrointestinal: Denies nausea or vomiting Musculoskeletal Musculoskeletal: Denies myalgias or neck pain Integumentary Denies rash Neurologic Neurologic: Reports headache(s) PFSH PFSH Medical History Asthma GERD (gastroesophageal reflux disease) CAVAZOS (nonalcoholic steatohepatitis) Home Medications albuterol sulfate 90 mcg/actuation aerosol inhaler (Ventolin HFA) 1 - 2 puff inhalation Q4H PRN PRN Asthma 11/27/18 [History Last Taken 12/09/19] pantoprazole 40 mg tablet,delayed release 40 mg PO DAILY 12/10/19 [History Last Taken 12/09/19] budesonide-formoterol HFA 160 mcg-4.5 mcg/actuation aerosol inhaler (Symbicort) 2 puff inhalation BID 08/17/22 [History Last Taken Unknown] famotidine 20 mg tablet 20 mg PO DAILY PRN gerd 08/17/22 [History Last Taken Unknown] losartan 100 mg tablet 100 mg PO DAILY 08/17/22 [History Last Taken Unknown] melatonin 10 mg tablet 10 mg PO QHS 08/17/22 [History Last Taken Unknown] metoprolol succinate 50 mg tablet,extended release 24 hr 50 mg PO DAILY 08/17/22 [History Last Taken Unknown] multivitamin 1 tab PO DAILY 08/17/22 [History Last Taken Unknown] omega-3 fatty acids 1,000 mg PO DAILY 08/17/22 [History Last Taken Unknown] prednisone 50 mg tablet 50 mg PO DAILY #5 tabs 08/17/22 [Rx Last Taken Unknown] rosuvastatin 40 mg tablet 40 mg PO DAILY 08/17/22 [History Last Taken Unknown] vitamin B complex 1 tab PO DAILY 08/17/22 [History Last Taken Unknown] amoxicillin 875 mg-potassium clavulanate 125 mg tablet 1 tab PO BID #20 tabs 09/20/23 [Rx Last Taken Unknown] ciprofloxacin HCl 0.3 % eye drops 5 drp LEFT EYE BID 7 days #2.5 mL 09/20/23 [Rx Last Taken Unknown] Allergy/AdvReac Type Severity Reaction Status Date / Time No Known Allergies Allergy Verified 09/20/23 10:23 Surgical History History of History of cholecystectomy Social History Smoking Status: Former smoker EXAM Physical Exam Const Vital Signs: 09/20/23 10:24 Temperature 97.6 F L Temperature Source Temporal Pulse Rate 89 Respiratory Rate 20 H Blood Pressure 154/103 H Blood Pressure Mean 120 Pulse Ox 99 Oxygen Delivery Method Room Air Positive well nourished, well developed and obese General Appearance ED: well developed and NAD Nutritional Appearance: obese HEENT Reports moist mucous membranes HEENT Narrative: Fluffy white exudate noted in the left outer ear. No significant tenderness of the pinea or mastoid tenderness. The tympanic membrane is bulging and mildly erythematous with loss of the underlying structures. normocephalic Face and Sinus: Negative for sinus tenderness Throat: posterior oropharynx normal Eyes PERRL and EOMs intact bilaterally Neck no lymphadenopathy, supple and no meningeal signs Resp normal respiratory effort and clear to auscultation bilaterally Cardio Rate: regular rate Rhythm: regular rhythm Extremity normal to inspection Neuro oriented x3 Sensorium / Orientation: alert Motor Exam: Negative for general weakness Psych mental status grossly normal Skin Rashes: no rashes MDM MDM MDM Narrative Medical decision making narrative: Patient evaluated for worsening left ear pain. On exam she continues to appear to have otitis externa with infiltrate however she also appears to have now an otitis media. We will switch her to Cipro drops and also start her on amoxicillin for the otitis media. Counseled that she could also use [id number] Flonase daily as she likely has a component of eustachian tube dysfunction given her recent viral illness. Is given follow-up information for ENT if she does not have improvement. Given return precautions. All counseled alternate ibuprofen and Tylenol as needed for the discomfort. Discharged home in stable condition. Physical exam is not consistent with malignant otitis externa or mastoiditis and I do not think blood work or imaging of the inner ear/mastoid is indicated at this time. Discharge Plan Triage Chief Complaint: Ear Problem ED Provider: Philly Christie Dx/Rx/DC Orders Clinical Impression: Acute left otitis media, External otitis of left ear Instructions: ED Otitis Media Antibiotic ..., ED External Ear Infection (Adult) Prescriptions: New amoxicillin-pot clavulanate 875-125 mg tablet 1 tab PO BID Qty: 20 0RF ciprofloxacin HCl 0.3 % drops 5 drp LEFT EYE BID 7 Days Qty: 2.5 0RF Rx Instructions: for otic use, not ophthlamic No Action albuterol sulfate [Ventolin HFA] 1 INHALER inhaler 1 - 2 puff inhalation Q4H PRN PRN (Reason: Asthma) pantoprazole 40 MG tablet 40 mg PO DAILY multivitamin Tablet 1 tab PO DAILY metoprolol succinate 50 mg tablet extended release 24 hr 50 mg PO DAILY Patient Comments: take 1 tablet by mouth once daily famotidine 20 mg tablet 20 mg PO DAILY PRN (Reason: gerd) Patient Comments: take 1 tablet by mouth twice a day if needed for REFLUX OR UPPER ABDOMINAL DISCOMFORT vitamin B complex Tablet 1 tab PO DAILY losartan 100 mg tablet 100 mg PO DAILY Patient Comments: take 1 tablet by mouth once daily [place] 3 Capsule 1,000 mg PO DAILY rosuvastatin 40 mg tablet 40 mg PO DAILY Patient Comments: take 1 tablet by mouth once daily budesonide-formoterol [Symbicort] 160-4.5 mcg/actuation Hfa Aerosol Inhaler 2 puff INHALATION BID melatonin 10 mg Tablet 10 mg PO QHS prednisone 50 mg tablet 50 mg PO DAILY Qty: 5 0RF Primary Care Provider: Care Physician,No Primary Referrals: Lalit Peralta MD [Med Staff - Active Staff] - As Needed Care Physician,No Primary [Primary Care Provider] - Activity Restrictions/Additional Instructions: Use the drops given here today instead of the Polymycin drops. Place 5 drops into the left ear twice a day. If you run out before completing a 7-day course, you been given a paper prescription for further drops. In addition take the entire course of antibiotics for the inner ear infection. I do also recommend using [id number] Flonase (1 spray into each nostril daily) for 7 days. You may alternate ibuprofen and Tylenol as needed for discomfort. Return to the ER if you have a progression or worsening of your symptoms or further concerns. Disposition Disposition: Home, Self Care
== END 2023-09-20 11:51 | disposition home or self-care (01) ==
PROVIDERS: Emergency Provider Emergency Medicine; Visit Provider Emergency Medicine
DX: H66.92 Otitis media, unspecified, left ear (principal); H60.92 Unspecified otitis externa, left ear; E78.5 Hyperlipidemia, unspecified; H91.92 Unspecified hearing loss, left ear; Z87.891 Personal history of nicotine dependence; J45.909 Unspecified asthma, uncomplicated; Z86.16 Personal history of COVID-19; E66.9 Obesity, unspecified
CPT/HCPCS: 99282

== ENCOUNTER → 2023-11-01 | Outpatient (CLI) | payer MEDICAID, SELFPAY ==
[2023-11-01 15:00] LABS: Absolute Lymphocyte Count 1.53 X10^3/uL (0.83-4.51); Absolute Neutrophil Count 3.3 X10^3/uL (2.0-7.7); Basophil# 0.04 X10^3/uL; Basophil% 0.7 % (0-1); Eosinophil# 0.08 X10^3/uL; Eosinophils% 1.5 % (0-5); Hematocrit 41.7 % (37-47); Hemoglobin 13.6 g/dL (12.0-15.0); Lymphocyte # 1.53 X10^3/ul (0.83-4.51); Lymphocyte % 28.1 % (19-41); Mean Corp Hgb Conc 32.6 g/dL (32-36); Mean Corpuscular Hgb 29.7 pg (27.0-32.0); Mean Platelet Vol. 10.8 fl (6.2-12.0); Monocyte# 0.44 X10^3/uL; Monocyte% 8.1 % (0-10); NRBC Flagged by Analyzer 0 % (0-5); Neutrophil # 3.32 X10^3/uL (2.7-7.7); Platelet Count 210 K/mm3 (150-450); RBC Distribution Width CV 13.1 % (11.6-14.6); RBC Distribution Width SD 43.2 fl (35.1-43.9); Red Blood Count 4.58 M/mm3 (4.2-5.4); White Blood Count 5.4 K/mm3 (4.4-11.0)
[2023-11-01 15:13] LABS: Vitamin B12 434 pg/mL (211-911); Vitamin D,25 Hydroxy 38.1 ng/mL
[2023-11-01 15:27] LABS: AST(SGOT) 20 U/L (15-37); Alanine Aminotransfer ALT/SGPT 25 U/L (13-56); Albumin, Serum 3.8 g/dL (3.2-5.0); Alkaline Phosphatase 73 U/L (45-117); Anion Gap 5 (5-15); BUN 15 mg/dL (7-18); BUN/Creat Ratio 16.2 RATIO (10-20); Calcium,Total 8.7 mg/dL (8.5-10.1); Chloride 104 mmol/L (98-107); Cholesterol 119 mg/dL (200); Creatinine, Serum 0.93 mg/dL (0.55-1.02); EST Glomerular Filtration Rate 67 mL/min (>60); Est Glom Filt Rate - Afr Amer 81 mL/min (>60); Globulin 3.8 g/dL (2.2-4.2); Glucose 116 mg/dL (74-106); High Density Lipoprotein 55 mg/dL; Protein, Total 7.6 g/dL (6.4-8.2); Sodium Level 138 mmol/L (136-145); Thyroid Stim Hormone (TSH) 1.08 uIU/mL (0.358-3.74); Triglycerides 165 mg/dL; Very Low Density Lipoprotein 33 mg/dL (5-40)
== END | disposition home or self-care (01) ==
LOC: LAB 14:05
PROVIDERS: Referring Provider Nurse Practitioner Family; Visit Provider Nurse Practitioner Family
DX: E78.5 Hyperlipidemia, unspecified (principal); E66.01 Morbid (severe) obesity due to excess calories; I10 Essential (primary) hypertension
CPT/HCPCS: 36415; 80053; 80061; 82306; 82607; 83036; 84443; 85025

== ENCOUNTER → 2023-12-07 | Outpatient (CLI) | payer MEDICAID, SELFPAY ==
--- NOTE | 2023-12-07 14:55 | RAD_ITS ---
STUDY: X-RAY - RIGHT HAND REASON FOR EXAM: Female, 53 years old. Pain and stiffness TECHNIQUE: 2 view(s) of the hand. COMPARISON: None. FINDINGS: Normal radiocarpal articulation. Normal distal radioulnar joint. Normal visualized carpal bones. Normal carpal articulations Normal carpometacarpal articulation of the thumb. Normal second through fifth carpometacarpal joints. Normal metacarpi. Normal metacarpophalangeal joint of the thumb. Normal interphalangeal joint of the thumb. Normal proximal and distal phalanges of the thumb. Normal metacarpophalangeal joints of the second through fifth fingers. Normal proximal and distal interphalangeal joints of the second through fifth fingers. Normal phalanges of the second through fifth fingers. The soft tissue structures are unremarkable. RAD/Hand 2 Views IMPRESSION: Normal x-ray examination of the hand. Electronically Signed: Javier Jose MD at 20:05 EST ,
--- OUTSIDE RECORDS SUMMARY | 2023-12-07 16:24 | XMS RPT_ITS | CCD ---
Author Name Unknown Address [address] [place] [address] Organization [facility] Care Team Providers Care Universal Grinder Set Up Operator Name Role Phone MARSHA ABBOTTON E Unavailable Unavailable NO FAMILY DOCTOR, NO FAMILY DOCTOR Unavailable Unavailable MILENA ALMA E Unavailable Unavailable MILENA, ALMA E Unavailable Unavailable NO FAMILY DOCTOR, NO FAMILY DOCTOR Unavailable Unavailable ISABELA MCCLAIN Unavailable Unavailable NO FAMILY DOCTOR, NO FAMILY DOCTOR Unavailable Unavailable Isabela Mcclain Primary Care Provider Isabela Mcclain Primary Care Provider Isabela Mcclain MD Primary Care Provider Unavailable Primary Care Provider UnavailISABELA Gamboa Primary Care Unavailable ISABELA MCCLAIN Attending Unavailable ISABELA MCCLAIN Referring Unavailable Medications Current Medications Medication Drug Class(es) Dates Sig (Normalized) Sig (Original) acetaminophen 500 mg oral tablet (1 source) Start: 03-11-2020 take 2 tablets by mouth every six hours for pain RA ACETAMINOPHEN EX ST 500 MG tablet Indications: Chronic low back pain without sciatica, unspecified back pain laterality take 2 tablets by mouth every 6 hours if needed for pain 120 tablet 3 03/11/2020 Active acetaminophen 325 mg / oxyCODONE hydrochloride 5 mg oral tablet (1 source) Opioid Agonist Start: 06-25-2020 End: 06-28-2020 take 1 tablet by mouth every six hours as needed for pain oxyCODONE-acetamino phen (PERCOCET) 5-325 MG per tablet Indications: Left hip pain Take 1 tablet by mouth every 6 hours as needed for Pain for up to 3 days. 12 tablet 0 06/25/2020 06/28/2020 Active [id number] 200 actuat albuterol 0.09 mg/actuat metered dose inhaler (2 sources) beta2-Adrenergic Agonist Start: 09-17-2020 take 2 puff(s) by mouth every six hours for wheezing albuterol sulfate HFA 108 (90 Base) MCG/ACT inhaler Indications: Uncomplicated asthma, unspecified asthma severity, unspecified whether persistent inhale 2 puffs by mouth every 6 hours if needed for wheezing 18 g 5 09/17/2020 Active albuterol sulfate HFA 108 (90 Base) MCG/ACT inhaler (6 sources) Start: 09-17-2020 take 2 puff(s) by mouth every six hours for wheezing albuterol sulfate HFA 108 (90 Base) MCG/ACT inhaler Indications: Uncomplicated asthma, unspecified asthma severity, unspecified whether persistent inhale 2 puffs by mouth every 6 hours if needed for wheezing 18 g 5 09/17/2020 Active Completed/Discontinued Medications Medication Drug Class(es) Dates Sig (Normalized) Sig (Original) 1 ml ketorolac tromethamine 30 mg/ml cartridge (1 source) Nonsteroidal Anti-inflammatory Drug, Cyclooxygenase Inhibitor Start: 06-25-2020 End: 06-25-2020 ketorolac (TORADOL) injection 30 mg 1 ml morphine sulfate 2 mg/ml injection (1 source) Opioid Agonist Start: 06-25-2020 End: 06-25-2020 morphine injection 4 mg Problems Active Problems Problem Classification Problem Date Documented Date Episodic/Chronic Asthma (8 sources) Uncomplicated asthma; Translations: [Unspecified asthma, uncomplicated] Onset: 07-02-2020 07-02-2020 Chronic Asthma (1 source) Asthma Onset: 12-01-2017 Hepatitis (9 sources) Nonalcoholic steatohepatitis; Translations: [Nonalcoholic steatohepatitis (CAVAZOS)] Onset: 07-03-2020 07-03-2020 Chronic Osteoarthritis (3 sources) Bilateral arthritis of knees; Translations: [Bilateral primary osteoarthritis of knee] Onset: 02-06-2021 02-06-2021 Chronic Other liver diseases (1 source) Elevated liver enzymes level; Translations: [Liver enzyme elevation] Episodic Other non-traumatic joint disorders (1 source) Knee pain; Translations: [Chronic pain of both knees] Episodic Other non-traumatic joint disorders (1 source) Bilateral knee pain; Translations: [Pain in right knee] Episodic Other non-traumatic joint disorders (1 source) Bilateral arthritis of knees; Translations: [Arthritis of both knees] Onset: 02-06-2021 02-06-2021 Other nutritional; endocrine; and metabolic disorders (4 sources) Obesity; Translations: [Obesity, unspecified] Onset: 02-06-2021 02-06-2021 Chronic Other screening for suspected conditions (not mental disorders or infectious disease) (2 sources) Patient encounter status; Translations: [Encounter for screening mammogram for malignant neoplasm of breast] Onset: 09-01-2023 Episodic Unclassified (2 sources) Unspecified lump in unspecified breast / N63.0(ICD-9) Onset: 12-01-2017 Unclassified (2 sources) Unspecified lump in the right breast, unspecified quadrant / N63.10(ICD-9) Onset: 12-06-2017 Unclassified (1 source) Unspecified lump in the left breast, unspecified quadrant / N63.20(ICD-9) Onset: 12-06-2017 Unclassified (2 sources) Plantar fascial fibromatosis / M72.2(ICD-9) Onset: 02-03-2018 Past or Other Problems Problem Classification Problem Date Documented Da te Episodic/Chronic Other connective tissue disease (1 source) Plantar fascial fibromatosis; Translations: [Plantar fascial fibromatosis] Onset: 02-03-2018 Episodic Other non-traumatic joint disorders (1 source) Hip pain; Translations: [Left hip pain] Episodic Unclassified (1 source) Unspecified lump in the right breast, unspecified quadrant; Translations: [Unspecified lump in the right breast, unspecified quadrant] Onset: 12-06-2017 Unclassified (1 source) Unspecified lump in unspecified breast; Translations: [Unspecified lump in unspecified breast] Onset: 12-01-2017 Results Test Name Value Interpretation Reference Range Facil ity Vital Signs Date Time Vital Sign Value Performing Clinician Faci lity 05-12-2021 08:17-0400 Diastolic blood pressure 65 mm[Hg] Elroy Vincent MD Work Phone: [employer] Work Phone: 05-12-2021 08:17-0400 Heart rate 78 /min Elroy Vincent MD Work Phone: [employer] Work Phone: 05-12-2021 08:17-0400 Respiratory rate 18 /min Elroy Vincent MD Work Phone: [employer] Work Phone: 05-12-2021 08:17-0400 SaO2% (BldA) [Mass fraction] 95 % Elroy Vincent MD Work Phone: [employer] Work Phone: 05-12-2021 08:17-0400 Systolic blood pressure 130 mm[Hg] Elroy Vincent MD Work Phone: [employer] Work Phone: 05-12-2021 07:00-0400 Body height 157.5 cm Elroy Vincent MD Work Phone: [employer] Work Phone: 05-12-2021 07:00-0400 Body mass index (BMI) [Ratio] 56.7 kg/m2 Elroy Vincent MD Work Phone: [employer] Work Phone: 05-12-2021 07:00-0400 Body temperature 98.01 [degF] Elroy Vincent MD Work Phone: [employer] Work Phone: 05-12-2021 07:00-0400 Body weight 140.62 kg Elroy Vincent MD Work Phone: [employer] Work Phone: 09-02-2020 08:46-0400 BP Diastolic 70 mm[Hg] Elroy [employer] [place] , [place] 09-02-2020 08:46-0400 BP Systolic 124 mm[Hg] [facility] [employer] [place] , [place] 09-02-2020 08:46-0400 Pulse (Heart Rate) 63 /min [facility] [place] 09-02-2020 08:46-0400 Pulse Oximetry 96 % [facility] [place] [facility] [place] 09-02-2020 08:46-0400 Respiratory Rate 20 /min Elroy Carlton [facility], [place] 09-02-2020 07:37-0400 BMI (Body Mass Index) 55.6 kg/m2 Elroy Andrews [facility], [place] 09-02-2020 07:37-0400 Body Temperature 97.2 [degF] Elroy Andrews [facility], [place] 09-02-2020 07:37-0400 Body weight 137.89 kg Elroy Vincent [facility] , [place] 09-02-2020 07:37-0400 Height 157.5 cm Elroy Vincent [facility] , [place] 06-25-2020 12:56-0400 BP Diastolic 83 mm[Hg] [facility] , [place] 06-25-2020 12:56-0400 BP Systolic 154 mm[Hg] [facility] , [place] 06-25-2020 12:55-0400 BMI (Body Mass Index) 59.63 kg/m2 [facility], [place] 06-25-2020 12:55-0400 Body Temperature 98.29 [degF] [facility] [place] 06-25-2020 12:55-0400 Body weight 147.87 kg [facility] [place] 06-25-2020 12:55-0400 Height 157.5 cm [facility] [place] 06-25-2020 12:55-0400 Pulse (Heart Rate) 86 /min [place] 06-25-2020 12:55-0400 Pulse Oximetry 97 % [facility] [place] 06-25-2020 12:55-0400 Respiratory Rate 16 /min [place] Encounters Encounter Date Encounter Type Care Provider Facility Start: 09-01-2023 End: 09-04-2023 [facility] Start: 05-29-2021 End: 05-29-2021 Transcribe Orders Martha Joaquin [facility] Physicia n Referral Service Start: 05-14-2021 End: 05-16-2021 Subsequent hospital visit by physician Mitesh Mammogram [facility] Room [facility] [place] Procedures Date Procedure Procedure Detail Performing Clinician Start: 05-14-2021 Screening mammography bi 2-view breast inc cad Isabela Mcclain MD Work Phone: Start: 05-12-2021 Colonoscopy Elroy Vincent MD Work Phone: Start: 02-06-2021 Radiologic examination knee 3 views Yuan Palacio Work Phone: Start: 01-07-2021 Us abdominal real time w/image limited Isabela Mcclain Work Phone: Start: 09-02-2020 Esophagogastroduodenoscopy Elroy Vincent Work Phone: Start: 07-01-2020 Us abdominal real time w/image limited Isabela Mcclain Work Phone: Start: 06-25-2020 Radex hip unilateral with pelvis 2-3 views Jerri Aguilar Work Phone: Plan of Treatment Date Care Activity Detail Author Start: 05-12-2031 Screening for malign ant neoplasm of colon Colon [facility]: Start: 06-10-2025 Lipid panel Lipid screen [facility], [place] Start: 01-23-2022 Shingles Vaccine (1 of 2) Shingles Vaccine (1 of 2) [employer] Work Phone: Immunizations Immunization Date Immunization Notes Care Provider Ruben kulkarni 03-13-2021 COVID-19, Moderna, P F, 100mcg/0.5mL Elroy Vincent MD Work Phone: [employer] Work Phone: 02-13-2021 COVID-19, Moderna, P F, 100mcg/0.5mL Elroy Vincent MD Work Phone: [employer] Phone: 10-02-2020 influenza, injectabl e, quadrivalent, contains preservative [place] [employer] Work Phone: 11-06-2019 influenza, injectabl e, quadrivalent, contains preservative [facility] [place] 08-17-2018 Influenza Vaccine, unspecified formulation [facility] , [place] 08-17-2018 influenza virus vaccine, unspecified formulation [facility], [place] 08-13-2018 pneumococcal Conjuga te, unspecified formulation [facility] , [place] 08-11-2018 influenza, injectabl e, quadrivalent, preservative free [facility], [place] 08-29-2017 Influenza Vaccine, unspecified formulation [facility] , [place] 08-29-2017 influenza virus vaccine, unspecified formulation [place], [place] Payers Date Payer Category Payer Medicaid [id number] 2018 Unknown [employer] [id number] 2018-Present [phone] [address] [place] [address] [id number] 2017 Medicaid [id number] 2017 Unknown [employer] ADVANT AGE [employer] [id number] 2017-Present [phone] [address] [place] [address] [id number] 1970 Unknown [id number] Medicaid [id number] Medicaid [employer] MED[employer] ID [employer] Effective for all dates [phone] [address] [place] [address] Medicaid HMO Social History Date Type Detail Facility Start: 07-03-2020 End: 05-14-2021 Tobacco smoking status NHIS Former smoker [place], [place] End: 01-25-2017 History of tobacco use Current smoker [place], [place] End: 01-25-2017 History of tobacco use Cigarette Smoker [place] Start: 07-03-2020 End: 05-14-2021 Tobacco use and exposure Never used [place] Start: 06-25-2020 End: 07-03-2020 [facility] intake [facility]: 01-18[facility]2018 Alcohol Comment [facility] Start: 1970 [facility] -2 (event) Not sure [facility] Start: 10-02-2020 End: 05-14-2021 Alcohol intake [facility] (finding) [facility] Evaluation note Note Date & Type Note Facility documented in this encounter [facility] [employer] Phone: Evaluation note Note Date & Type Note Facility documented in this encounter [facility] Hospital Discharge instructions Instructions Note Date & Type Note Facility Hospital Discharge instructions Maura Werner, [place] - 05/12/2021 Images from the original note were not included. Hemorrhoids: Care Instructions Your Care Instructions Hemorrhoids are enlarged veins that develop in the anal canal. Bleeding during bowel movements, itching, swelling, and rectal pain are the most common symptoms. They can be uncomfortable at times, but hemorrhoids rarely are a serious problem. You can treat most hemorrhoids with simple changes to your diet and bowel habits. These changes include eating more fiber and not straining to pass stools. Most hemorrhoids do not need surgery or other treatment unless they are very large and painful or bleed a lot. Follow-up care is a aguilar part of your treatment and safety. Be sure to make and go to all appointments, and call your doctor if you are having problems. It's also a good idea to know your test results and keep a list of the medicines you take. How can you care for yourself at home? Sit in a few inches of warm water (sitz bath) 3 times a day and after bowel movements. The warm water helps with pain and itching. Put ice on your anal area several times a day for 10 minutes at a time. Put a thin cloth between the ice and your skin. Follow this by placing a warm, wet towel on the area for another 10 to 20 minutes. Take pain medicines exactly as directed. ? If the doctor gave you a prescription medicine for pain, take it as prescribed. ? If you are not taking a prescription pain medicine, ask your doctor if you can take an afaq-pcv-zciqeoo medicine. Keep the anal area clean, but be gentle. Use water and a fragrance-free soap, such as Ivory, or use baby wipes or medicated pads, such as Tucks. Wear cotton underwear and loose clothing to decrease moisture in the anal area. Eat more fiber. Include foods such as whole-grain breads and cereals, raw vegetables, raw and dried fruits, and beans. Drink plenty of fluids. If you have kidney, heart, or liver disease and have to limit fluids, talk with your doctor before you increase the amount of fluids you drink. Use a stool softener that contains bran or psyllium. You can save money by buying bran or psyllium (available in bulk at most [employer] stores) and sprinkling it on foods or stirring it into fruit juice. Or you can use a product such as Metamucil or Hydrocil. Practice healthy bowel habits. ? Go to the bathroom as soon as you have the urge. ? Avoid straining to pass stools. Relax and give yourself time to let things happen naturally. ? Do not hold your breath while passing stools. ? Do not read while sitting on the toilet. Get off the toilet as soon as you have finished. Take your medicines exactly as prescribed. Call your doctor if you think you are having a problem with your medicine. When should you call for help? Call 911 anytime you think you may need emergency care. For example, call if: You pass maroon or very bloody stools. Call your doctor now or seek immediate medical care if: You have increased pain. You have increased bleeding. Watch closely for changes in your health, and be sure to contact your doctor if: Your symptoms have not improved after 3 or 4 days. Where can you learn more? Go to [email or web address] and sign in to your [employer] account. Enter F228 in the Search Health Information box to learn more about Hemorrhoids: Care Instructions. If you do not have an account, please click on the Sign Up Now link. Current as of: March 13, 2020 Content Version: 12.8 [employer]. Care instructions adapted under license by [employer]. If you have questions about a medical condition or this instruction, always ask your healthcare professional. [employer], [facility] disclaims any warranty or liability for your use of this information. Colon Polyps: Care Instructions Your Care Instructions Colon polyps are growths in the colon or the rectum. The cause of most colon polyps is not known, and most people who get them do not have any problems. But a certain kind can turn into cancer. For this reason, regular testing for colon polyps is important for people as they get older. It is also important for anyone who has an increased risk for colon cancer. Polyps are usually found through routine colon cancer screening tests. Although most colon polyps are not cancerous, they are usually removed and then tested for cancer. Screening for colon cancer saves lives because the cancer can usually be cured if it is caught early. If you have a polyp that is the type that can turn into cancer, you may need more tests to examine your entire colon. The doctor will remove any other polyps that he or she finds, and you will be tested more often. Follow-up care is a aguilar part of your treatment and safety. Be sure to make and go to all appointments, and call your doctor if you are having problems. It's also a good idea to know your test results and keep a list of the medicines you take. How can you care for yourself at home? Regular exams to look for colon polyps are the best way to prevent polyps from turning into colon cancer. These can include stool tests, sigmoidoscopy, colonoscopy, and CT colonography. Talk with your doctor about a testing schedule that is right for you. To prevent polyps There is no home treatment that can prevent colon polyps. But these steps may help lower your risk for cancer. Stay active. Being active can help you get to and stay at a healthy weight. Try to exercise on most days of the week. Walking is a good choice. Eat well. Choose a variety of vegetables, fruits, legumes (such as peas and beans), fish, poultry, and whole grains. Do not smoke. If you need help quitting, talk to your doctor about stop-smoking programs and medicines. These can increase your chances of quitting for good. If you drink alcohol, limit how much you drink. Limit alcohol to 2 drinks a day for men and 1 drink a day for women. When should you call for help? Call your doctor now or seek immediate medical care if: You have severe belly pain. Your stools are maroon or very bloody. Watch closely for changes in your health, and be sure to contact your doctor if: You have a fever. You have nausea or vomiting. You have a change in bowel habits (new constipation or diarrhea). Your symptoms get worse or are not improving as expected. Where can you learn more? Go to [email or web address] and sign in to your [employer] account. Enter C571 in the Search Health Information box to learn more about Colon Polyps: Care Instructions. If you do not have an account, please click on the Sign Up Now link. Current as of: November 14, 2020 Content Version: 12.8 Balanced. Care instructions adapted under license by [employer]. If you have questions about a medical condition or this instruction, always ask your healthcare professional. [employer] disclaims any warranty or liability for your use of this information. documented in this encounter [employer] Work Phone: Summary Purpose Family History No Family History Records FoundNo Family History Records FoundNo Family History Records FoundNo Family History Records Found Advance Directives No Advanced Directives Records FoundDocuments on File Type Date Recorded Patient Bag Filler Expl anation Advance Directives and Living Will Power of Grease Press Helper Documents on File Type Date Recorded Patient Bag Filler Expl anation ACP-Advance Directive ACP-Power of Grease Press Helper Documents on File Type Date Recorded Patient Bag Filler Expl anation ACP-Advance Directive ACP-Power of Grease Press Helper Documents on File Type Date Recorded Patient Bag Filler Expl anation Advance Directives and Living Will Power of Grease Press Helper Documents on File Type Date Recorded Patient Bag Filler Expl anation ACP-Advance Directive ACP-Power of Grease Press Helper ACP-Advance Directive 05/13/2021 10:55 AM Reason for Referral Status Reason Specialty Diagnoses / Procedures Referre d By Contact Referred To Contact Closed Radiology Diagnoses Liver enzyme elevation Procedures US ABDOMEN LIMITED Isabela Mcclain MD [address] [place] [id number] Status Reason Specialty Diagnoses / Procedures Referre d By Contact Referred To Contact Closed Radiology Diagnoses CAVAZOS (nonalcoholic steatohepatitis) Procedures US ABDOMEN LIMITED Isabela Mcclain MD [address] [place] [id number] Status Reason Specialty Diagnoses / Procedures Referre d By Contact Referred To Contact Closed Radiology Diagnoses Encounter for screening mammogram for breast cancer Procedures CLAUDETTE Digital Screen Bilateral [[id number]] Isabela Mcclain MD [address] [facility] [address] [place] [address] Status Reason Specialty Diagnoses / Procedures Referred By Contact Referred To Contact [facility] Diagnoses Obesity, unspecified classification, unspecified obesity type, unspecified whether serious comorbidity present CAVAZOS (nonalcoholic steatohepatitis) Arthritis of both knees Uncomplicated asthma, unspecified asthma severity, unspecified whether persistent Procedures [facility] BARIATRIC SURGERY SERVICE REQUEST LVL 3 EST PT, LOW MDM, 20-29 MINUTES Isabela Mcclain [address] [place] [address] Surgery General [address] [id number] Status Reason Specialty Diagnoses / Procedures Referred By Contact Referred To Contact Authorized Transfer of [facility] Internal Medicine Diagnoses Obesity, unspecified classification, unspecified obesity type, unspecified whether serious comorbidity present CAVAZOS (nonalcoholic steatohepatitis) Arthritis of both knees Uncomplicated asthma, unspecified asthma severity, unspecified whether persistent Procedures [facility] WEIGHT MANAGEMENT SERVICE REQUEST LVL 3 EST PT, LOW MDM, 20-29 MINUTES Isabela Mcclain [address], [place] [address] Weight Management [address] [id number] Assessments Diagnosis Liver enzyme elevation Nonspecific elevation of levels of transaminase or lactic acid dehydrogenase (LDH) Diagnosis CAVAZOS (nonalcoholic steatohepatitis) Other chronic nonalcoholic liver disease Diagnosis Chronic pain of both knees Diagnosis Left hip pain Pain in joint, pelvic region and thigh Discharge Instructions * Attachments The following attachments cannot be sent through Care Everywhere. * Hip Pain (Belgian) documented in this encounter* Attachments The following attachments cannot be sent through Care Everywhere. * GERD (Belgian) * EGD (Upper Endoscopy): Post-op (Belgian) * Coronavirus Disease (COVID-19): General Info (Belgian) documented in this encounter History of Present Illness * Erin Pruett RN - 09/02/2020 8:55 AM EDT Gastric cardia nodule bx's documented in this encounter Additional Source Comments INFORMATION SOURCE (unrecogn ized section and content) DATE CREATED AUTHOR AUTHOR'S ORGANIZ ATION 05/20/2018 [facility] Healthcare DATE CREATED AUTHOR AUTHOR'S ORGANIZ ATION 01/23/2022 [facility] DATE CREATED AUTHOR AUTHOR'S ORGANIZ ATION 09/06/2023 [facility] Reason for Visit (unrecogniz ed section and content) Status Reason Specialty Diagnoses / Procedures Referre d By Contact Referred To Contact Closed Radiology Diagnoses CAVAZOS (nonalcoholic steatohepatitis) Procedures US ABDOMEN LIMITED Isabela Mcclain MD [address] [place] [address] [address] [place] [address] Reason Comments Hip Pain left sided, worse fo r the past 3 days but chronic for years Status Reason Specialty Diagnoses / Procedures Re ferred By Contact Referred To Contact Diagnoses Sanches's esophagus without dysplasia Gastro-esophageal reflux disease without esophagitis sanches's esophagus determined by biopsy, GERD K22.70, K[address] ESOPHAGOGASTRODUODENOSCOPY TRANSORAL DIAGNOSTIC EGD ESOPHAGOGASTRODUODENOSCOPY Elroy Vincent MD [address] [place] [address] [facility] Status Reason Specialty Diagnoses / Procedures Referre d By Contact Referred To Contact Diagnoses Encounter for screening for malignant neoplasm of colon Screening, hx polyps Procedures CT COLORECTAL SCRN; HI RISK IND COLORECTAL CANCER SCREENING, HIGH RISK Elroy Vincent MD [address] [place] [address] [facility] Status Reason Specialty Diagnoses / Procedures Referre d By Contact Referred To Contact Closed Radiology Diagnoses Encounter for screening mammogram for breast cancer Procedures CLAUDETTE Digital Screen Bilateral [[id number]] Isabela Mcclain MD [facility] [address] [place] [address] Scheduled Active and Recently Administ ered Medications (unrecognized section and content) Continuous Medication Order 05/10/2021 05/11/2021 05/12/2021 0.9 % sodium chloride infusion Intravenous, at 100 mL/hr, CONTINUOUS, Starting on Wed05/12/21 at 0715, Intra-op 0714 (New Bag - Prov ider: Marybel Roldan RN)0801 (Rate/Dose Change - Provider: Anisha Grove APRN - [facility]) 0.9 % sodium chloride infusion Intravenous, at 125 mL/hr, CONTINUOUS, Starting on Wed05/12/21 at 0830, Please use sodiums chloride 0.9 % for renal failure / dialysis patients. Please use mini drip at o, Pre-op (day of surgery) 0830 (Due) PRN Medication Order 05/10/2021 05/11/2021 05/12/2021 0.9 % sodium chloride infusion 25 mL, Intravenous, at 100 mL/hr, PRN, If patient receiving piggyback infusions without ordered maintenance IV fluids or with frequent/long duration piggyback infusions, Starting on Wed05/12/21 at 0808, Administer at the same rate as the piggyback being infused., Pre-op (day of surgery) lidocaine PF 1 % injection 1 mL 1 mL, Intradermal, ONCE PRN, IV start, Starting on Wed05/12/21 at 0808, For 1 dose, Pre-op (day of surgery) ondansetron (ZOFRAN) injection 4 mg 4 mg, Intravenous, ONCE PRN, Nausea, Starting on Wed05/12/21 at 0720, For 1 dose, Initial antiemetic therapy., PACU only simethicone (MYLICON) 40 MG/0.6ML drops (CANCELED) PRN, Starting on Wed05/12/21 at 0750, Intra-op 0750 (Given - Provid er: Elroy Vincent MD - Comment: irrigation) sodium chloride flush 0.9 % injection 5-40 mL 5-40 mL, Intravenous, PRN, Line Care, Starting on Wed05/12/21 at 0808, For Line Patency: Peripheral IV = 5 mL; Midline or Central Line = 10 mL/lumen. If following IV push medication, administer flush at same rate as the IV push. Flush volume is determined by type of infusion therapy being given. For non-viscous solutions use: Peripheral IV = 5 mL Midline or Central Line = 10 mL/lumen For viscous solutions (i.e. blood components, parenteral nutrition, contrast media, or after obtaining blood sample) use: Peripheral IV = 10 mL Midline or Central Line = 20 mL/lumen, Pre-op (day of surgery) sterile water for irrigation (CANCELED) PRN, Starting on Wed05/12/21 at 0750, Intra-op 0750 (Given - Provid er: Elroy Vincent MD) FOR RECORDS PERTAINING TO PATIENTS WHO ARE OR HAVE BEEN ENROLLED IN A CHEMICAL DEPENDENCY/SUBSTANCEABUSE PROGRAM, SOME INFORMATION MAY BE OMITTED. This clinical summary was aggregated from multiple sources. Caution should be exercised in using it in the provision of clinical care. This summary normalizes information from multiple sources, and as a consequence, information in this document may materially change the coding, format and clinical context of patient data. In addition, data may be omitted in some cases. CLINICAL DECISIONS SHOULD BE BASED ON THE PRIMARY CLINICAL RECORDS. [employer] provides no warranty or guarantee of the accuracy or completeness of information in this document.
== END | disposition home or self-care (01) ==
LOC: RAD.FUTURE 14:50 → RAD 15:35
PROVIDERS: Referring Provider Nurse Practitioner Family; Visit Provider Nurse Practitioner Family
DX: M79.644 Pain in right finger(s) (principal)
CPT/HCPCS: 73120

== ENCOUNTER 2024-02-15 03:47 | Emergency (ER) | payer MEDICAID, SELFPAY ==
[2024-02-15 03:47] VITALS: BP 161/100; PULSE 96; RESP 19; TEMP 36; O2SAT 97
[2024-02-15 03:48] VITALS: BP 161/100; PULSE 98; RESP 20; TEMP 36; O2SAT 96; BMI 61.0
--- NOTE | 2024-02-15 04:06 | EDS_ITS ---
HPI HPI - GI History of Present Illness Chief Complaint: Abd Pain Informant: patient Narrative Narrative: 53-year-old female presents with a 6-hour episode of epigastric discomfort, nausea, she states she forced herself to vomit once and felt better. Only for about 5 minutes. She has had a lot of belching and gas associated with this. This is the second or third episode she has had in the last 2 weeks. She has noticed an association with MiraLAX in the discomfort but not necessarily meals. Lying down seems to be more uncomfortable. She presents at 4 AM for this because she cannot sleep because it is bothering her so much despite taking an acid which seem to not help at all. She has had no alcohol recently. Has had prior remote cholecystectomy. She states when she started Trulicity about 3 months ago, it seems to have made her constipated, so her doctor recommended MiraLAX which she has also been taking for 2 months or so, regularly but not every day, and the last dose that she had was 2 or 3 days ago, she usually does 1 capful once a day when she does it. She states she had a normal bowel movement this past day, followed by 2 small in amount loose/liquid nonbloody nonmelanotic bouts of diarrhea. She describes chills but no known fevers. No hematemesis when she forced herself to vomit. [facility] Medical History (Updated 02/15/24 @ 07:[address] Baljeet Saeed MD) Asthma Diabetes mellitus, type II GERD (gastroesophageal reflux disease) CAVAZOS (nonalcoholic steatohepatitis) Home Medications albuterol sulfate 90 mcg/actuation aerosol inhaler (Ventolin HFA) 1 - 2 puff inhalation Q4H PRN PRN Asthma 11/27/18 [History Last Taken 12/09/19] pantoprazole 40 mg tablet,delayed release 40 mg PO DAILY 12/10/19 [History Last Taken 12/09/19] budesonide-formoterol HFA 160 mcg-4.5 mcg/actuation aerosol inhaler (Symbicort) 2 puff inhalation BID 08/17/22 [History Last Taken Unknown] famotidine 20 mg tablet 20 mg PO DAILY PRN gerd 08/17/22 [History Last Taken Unknown] losartan 100 mg tablet 100 mg PO DAILY 08/17/22 [History Last Taken Unknown] melatonin 10 mg tablet 10 mg PO QHS 08/17/22 [History Last Taken Unknown] metoprolol succinate 50 mg tablet,extended release 24 hr 50 mg PO DAILY 08/17/22 [History Last Taken Unknown] multivitamin 1 tab PO DAILY 08/17/22 [History Last Taken Unknown] omega-3 fatty acids 1,000 mg PO DAILY 08/17/22 [History Last Taken Unknown] rosuvastatin 40 mg tablet 40 mg PO DAILY 08/17/22 [History Last Taken Unknown] vitamin B complex 1 tab PO DAILY 08/17/22 [History Last Taken Unknown] blood sugar diagnostic (True Metrix Glucose Test Strip) 02/15/24 [History Last Taken Unknown] blood-glucose meter (True Metrix Glucose Meter) 02/15/24 [History Last Taken Unknown] docusate sodium 100 mg capsule 100 mg PO BID 02/15/24 [History Last Taken Unknown] dulaglutide 1.5 mg/0.5 mL subcutaneous pen injector (Trulicity) 1.5 mg subcut QWEEK 02/15/24 [History Last Taken Unknown] dulaglutide 3 mg/0.5 mL subcutaneous pen injector (Trulicity) 3 mg subcut QWEEK 02/15/24 [History Last Taken Unknown] hyoscyamine sulfate 0.125 mg disintegrating tablet 0.125 mg PO Q6H PRN abdominal discomfort #12 tabs 02/15/24 [Rx Last Taken Unknown] ibuprofen 800 mg tablet 800 mg PO TID PRN PRN pain 02/15/24 [History Last Taken Unknown] lancets 33 gauge (Unilet Lancet) 02/15/24 [History Last Taken Unknown] polyethylene glycol 3350 17 gram/dose oral powder 17 g PO DAILY 02/15/24 [History Last Taken Unknown] promethazine 25 mg tablet 25 mg PO Q6H PRN PRN Nausea #15 TABLETS 02/15/24 [Rx Last Taken Unknown] sucralfate 1 gram tablet (Carafate) 1 g PO TID 5 days #15 tabs 02/15/24 [Rx Last Taken Unknown] Allergy/AdvReac Type Severity Reaction Status Date / Time No Known Allergies Allergy Verified 09/20/23 10:23 Surgical History History of History of cholecystectomy Social History Smoking Status: Former smoker ROS ROS ED Constitutional Constitutional ED: Reports chills; Denies fever(s) Eyes Eyes: Denies change in vision or diplopia ENT ENT ED: Denies rhinorrhea or sore throat Cardiovascular Cardiovascular: Denies chest pain or palpitations Respiratory/Chest Respiratory/Chest: Denies cough or dyspnea Gastrointestinal Gastrointestinal: Reports abdominal pain, diarrhea, nausea and vomiting; Denies hematemesis, hematochezia or melena Genitourinary Genitourinary ED: Denies dysuria or hematuria Musculoskeletal Musculoskeletal: Denies back pain or neck pain Integumentary Denies abscess or rash Neurologic Neurologic: Denies headache(s), paresthesias or weakness Psychiatric Psychiatric: Denies depression or suicidal thoughts EXAM Physical Exam Const Vital Signs: 02/15/24 03:48 02/15/24 03:47 02/15/24 04:22 Temperature 96.8 F L 96.8 F L Temperature Source Temporal Temporal Pulse Rate 98 96 86 Respiratory Rate 20 H 19 H 19 H Blood Pressure 161/100 H 161/100 H 154/86 H Blood Pressure Mean 120 120 108 Pulse Ox 96 97 96 Oxygen Delivery Method Room Air Room Air Room Air 02/15/24 07:08 Temperature Temperature Source Pulse Rate 76 Respiratory Rate 19 H Blood Pressure 130/64 H Blood Pressure Mean 86 Pulse Ox 77 Oxygen Delivery Method Room Air Positive well nourished, well developed and obese General Appearance ED: well developed and NAD Nutritional Appearance: obese HEENT Reports moist mucous membranes normocephalic and atraumatic Eyes PERRL and EOMs intact bilaterally Neck full ROM and supple Resp normal respiratory effort and clear to auscultation bilaterally Cardio regular rate, regular rhythm and no murmurs GI non-tender and non-distended Auscultation: normoactive bowel sounds Palpation: soft Back/Spine no CVA tenderness General Back: other FROM Extremity normal to inspection General Extremety ED: Negative for edema, pulses abnormal or tenderness General Extremity: Negative for edema or pulses abnormal Neuro oriented x3, CN's II-XII intact bilaterally and no sensory deficits noted Sensorium / Orientation: awake and alert Motor Exam: strength 5/5 throughout Psych mental status grossly normal and thought process normal Skin no rashes or lesions noted and no wounds MDM MDM MDM Narrative Medical decision making narrative: Patient has a fairly benign abdomen although it is somewhat limited due to her obesity. She had already taken to Mylanta, and given her symptoms with a lot of gas and belching, I think this is more likely to be GI in etiology rather than hepatic, pancreatic, cardiac. Therefore while obtaining labs including liver enzymes and lipase, she was given dicyclomine, simethicone, Zofran, and Carafate. This helped partially, temporarily. However then her discomfort became worse, we then gave her a GI cocktail including lidocaine, and hyoscyamine. After that she is feeling much better. She is still feeling gassy. I do not think she needs a CT or other advanced imaging at this time. I think this is intestinal spasm causing this pain. She has been on a PPI for 7 years and I do not think this is necessarily acid related. However, I am not able to rule out the possibility of intraluminal disease such as peptic ulcer disease. Therefore I recommend she continue the PPI, I am comfortable with her going home there is no evidence of upper GI bleeding clinically or any ancillary testing, I will prescribe her hyoscyamine to use as needed along with promethazine, and Carafate to take for the next 5 days. She is comfortable with the plan of following up. Differential also includes viral etiologies, and dyspepsia as well as other functional GI disorders. Lab Data Attestation: I reviewed the patient's lab results. Labs: Laboratory Results - last 24 hr 02/15/24 04:00 WBC 6.0 RBC 4.75 Hgb 14.4 Hct 41.2 MCV 86.7 MCH 30.3 MCHC 35.0 RDW Std Deviation 39.8 RDW Coeff of Carisa 12.5 Plt Count 187 MPV 10.3 Immature Gran % (Auto) 0.200 Neut % (Auto) 63.5 Lymph % (Auto) 25.2 [place] % (Auto) 8.8 Eos % (Auto) 1.8 Baso % (Auto) 0.5 Absolute Neuts (auto) 3.8 Absolute Lymphs (auto) 1.52 Nucleated RBC % 0 Sodium 140 Potassium 3.7 Chloride 105 Carbon Dioxide 31.0 Anion Gap 4 L BUN 17 Creatinine 0.99 Estim Creat Clear Calc 94.06 Est GFR (MDRD) Af Amer 76 Est GFR (MDRD) Non-Af 63 BUN/Creatinine Ratio 17.2 Glucose 111 H Calcium 9.2 Total Bilirubin 0.80 AST 24 ALT 36 Alkaline Phosphatase 77 Total Protein 7.6 Albumin 4.0 Globulin 3.6 Albumin/Globulin Ratio 1.1 Lipase 18 Discharge Plan Triage Chief Complaint: Abd Pain ED Provider: Baljeet Saeed Dx/Rx/DC Orders Clinical Impression: Acute epigastric pain Instructions: ED Epigastric Pain Uncertain Cause Prescriptions: New promethazine [promethazine] 25 mg tablet 25 mg PO Q6H PRN PRN (Reason: Nausea) Qty: 15 0RF hyoscyamine sulfate 0.125 mg tablet,disintegrating 0.125 mg PO Q6H PRN (Reason: abdominal discomfort) Qty: 12 0RF sucralfate [Carafate] 1 gram tablet 1 g PO TID 5 Days Qty: 15 0RF No Action albuterol sulfate [Ventolin HFA] 1 INHALER inhaler 1 - 2 puff inhalation Q4H PRN PRN (Reason: Asthma) pantoprazole 40 MG tablet 40 mg PO DAILY multivitamin Tablet 1 tab PO DAILY metoprolol succinate 50 mg tablet extended release 24 hr 50 mg PO DAILY Patient Comments: take 1 tablet by mouth once daily famotidine 20 mg tablet 20 mg PO DAILY PRN (Reason: gerd) Patient Comments: take 1 tablet by mouth twice a day if needed for REFLUX OR UPPER ABDOMINAL DISCOMFORT vitamin B complex Tablet 1 tab PO DAILY losartan 100 mg tablet 100 mg PO DAILY Patient Comments: take 1 tablet by mouth once daily [place] 3 Capsule 1,000 mg PO DAILY rosuvastatin 40 mg tablet 40 mg PO DAILY Patient Comments: take 1 tablet by mouth once daily budesonide-formoterol [Symbicort] 160-4.5 mcg/actuation Hfa Aerosol Inhaler 2 puff INHALATION BID melatonin 10 mg Tablet 10 mg PO QHS (DME) blood-glucose meter [True Metrix Glucose Meter] Misc MISCELLANEOUS TID ibuprofen 800 mg tablet 800 mg PO TID PRN PRN (Reason: pain) (DME) True Metrix Glucose Test Strip Strip 1 strip MISCELLANEOUS TID docusate sodium 100 mg capsule 100 mg PO BID polyethylene glycol 3350 17 gram/dose powder 17 g PO DAILY (DME) lancets [Unilet Lancet] 33 gauge misc MISCELLANEOUS TID Trulicity 1.5 mg/0.5 mL pen injector 1.5 mg subcut QWEEK Trulicity 3 mg/0.5 mL pen injector 3 mg subcut QWEEK Primary Care Provider: Ann Pisano [facility]Non[facility]Staff] - 3-5 Days if not improving Activity Restrictions/Additional Instructions: Take the Carafate as prescribed until completely gone, the other medications are as needed for pain/symptoms. Disposition Disposition: Home, Self Care
[2024-02-15] MEDS: SimETHICONE 80 MG Chewable Tablet 160 MG PO (04:19)
[2024-02-15] MEDS: Sucralfate 1 GM Tablet PO (04:19)
[2024-02-15] MEDS: Dicyclomine 10 MG Capsule 20 MG PO (04:19)
[2024-02-15] MEDS: Ondansetron ODT 4 MG Tablet 8 MG PO (04:19)
[2024-02-15 04:22] VITALS: BP 154/86; PULSE 86; RESP 19; O2SAT 96
[2024-02-15 04:26] LABS: Absolute Lymphocyte Count 1.52 X10^3/uL (0.83-4.51); Absolute Neutrophil Count 3.8 X10^3/uL (2.0-7.7); Basophil# 0.03 X10^3/uL; Basophil% 0.5 % (0-1); Eosinophil# 0.11 X10^3/uL; Eosinophils% 1.8 % (0-5); Hematocrit 41.2 % (37-47); Hemoglobin 14.4 g/dL (12.0-15.0); Lymphocyte # 1.52 X10^3/ul (0.83-4.51); Lymphocyte % 25.2 % (19-41); Mean Corpuscular Hgb 30.3 pg (27.0-32.0); Mean Corpuscular Volume 86.7 fL (81-99); Mean Platelet Vol. 10.3 fl (6.2-12.0); Monocyte# 0.53 X10^3/uL; Monocyte% 8.8 % (0-10); NRBC Flagged by Analyzer 0 % (0-5); Neutrophil # 3.83 X10^3/uL (2.7-7.7); Neutrophil % 63.5 % (47-70); Platelet Count 187 K/mm3 (150-450); RBC Distribution Width CV 12.5 % (11.6-14.6); RBC Distribution Width SD 39.8 fl (35.1-43.9); Red Blood Count 4.75 M/mm3 (4.2-5.4)
[2024-02-15 04:52] LABS: ALB/GLOB Ratio 1.1 RATIO (0.9-2.4); AST(SGOT) 24 U/L (15-37); Alanine Aminotransfer ALT/SGPT 36 U/L (13-56); Alkaline Phosphatase 77 U/L (45-117); Anion Gap 4 (5-15); BUN 17 mg/dL (7-18); BUN/Creat Ratio 17.2 RATIO (10-20); Calcium,Total 9.2 mg/dL (8.5-10.1); Chloride 105 mmol/L (98-107); Creatinine, Serum 0.99 mg/dL (0.55-1.02); EST Glomerular Filtration Rate 63 mL/min (>60); Est Glom Filt Rate - Afr Amer 76 mL/min (>60); Estimated Creatinine Clearance 94.06 ml/min; Globulin 3.6 g/dL (2.2-4.2); Glucose 111 mg/dL (74-106); Lipase 18 U/L (13-75); Potassium 3.7 mmol/L (3.5-5.1); Protein, Total 7.6 g/dL (6.4-8.2); Sodium Level 140 mmol/L (136-145)
[2024-02-15] MEDS: Hyoscyamine Sulfate 0.125 MG Tablet SL (05:38)
[2024-02-15] MEDS: Mag Hydrox/Al Hydrox/Simeth 30 ML UDC PO (05:38)
[2024-02-15 07:08] VITALS: BP 130/64; PULSE 76; RESP 19; O2SAT 77
[2024-02-15 07:23] VITALS: O2SAT 94
[2024-02-15 07:31] VITALS: BP 149/81; PULSE 75; RESP 18; TEMP 36.9; O2SAT 96
== END 2024-02-15 07:34 | disposition home or self-care (01) ==
PROVIDERS: Emergency Provider Emergency Medicine; PCP Nurse Practitioner Family; Visit Provider Emergency Medicine
DX: R10.13 Epigastric pain (principal); E11.9 Type 2 diabetes mellitus without complications; Z87.891 Personal history of nicotine dependence; R11.0 Nausea; Z90.49 Acquired absence of other specified parts of digestive tract; Z79.85 Long-term (current) use of injectable non-insulin antidiabetic drugs; J45.909 Unspecified asthma, uncomplicated; K21.9 Gastro-esophageal reflux disease without esophagitis; E66.9 Obesity, unspecified
CPT/HCPCS: 80053; 83690; 85025; 99283; A4216

== ENCOUNTER → 2024-03-30 | Outpatient (CLI) | payer MEDICAID, SELFPAY | END | disposition home or self-care (01) | LOC: SL 10:39 | PROVIDERS: PCP Nurse Practitioner Family; Referring Provider Nurse Practitioner Family; Visit Provider Nurse Practitioner Family | DX: G47.10 Hypersomnia, unspecified (principal) | CPT/HCPCS: 95801; 95806 ==

== ENCOUNTER 2024-04-20 06:16 | Day surgery (SDC) | payer MEDICAID, SELFPAY ==
--- NOTE | 2024-04-20 | GASB_PTH ---
PATIENT: MAIKOL GALDAMEZ LOC: EN U#:[id number] AGE/SX: 53/F ROOM: RE04/20/[address]: Dr. Dhruv Luna MD : 1970 BED: DIS: 04/20/2024 SPEC #: [id number] RECD: 04/20/24 13:23 STATUS: BECKY ARTIE #: [id number] GRACIA: 04/20/24 00:[address]: Dhruv Luna DEPT: SURGICAL PATHOLOGY RECD BY: Gaurang Rodriguez ENTERED: 04/20/24 13:24 SP TYPE: Gastric Bx OTHR DR: Ann Pisano, [facility]-C Tissues: A - Duodenum, NOS B - Gastric mucous membrane C - Stomach, NOS D - Gastric fundus E - Gastric mucous membrane F - Gastric mucous membrane Procedures: Special Stain Group I Surgery Specimen Level IV Alcian Blue/PAS (control) HEADER OPERATION: EGD with biopsies, polypectomy and electrohemostasis PRE-OP DIAGNOSIS: GERD TISSUE SUBMITTED: A- Duodenal bulb biopsy, B- Gastric antrum biopsy, C- Greater curvature polyp biopsy, D- Fundal polyp, E- Gastroesophageal junction fold polyp, F- Gastroesophageal junction biopsy MICROSCOPIC DIAGNOSIS A. Duodenal bulb, biopsy: No pathologic change. B. Gastric antrum, biopsy: Polypoid fragments of gastric mucosa with chronic inflammation. C. Greater curvature polyp, biopsy: Focal changes of fundic gland polyp. Mild chronic inflammation. D. Fundal polyp, biopsy: Fragments of fundic gland polyp. Mild chronic inflammation. E. Gastroesophageal junction polyp, biopsy: Hyperplastic polyp. Mild chronic inflammation. F. Gastroesophageal junction, biopsy: Fragments of gastric mucosa with mild chronic inflammation. No evidence of goblet cell metaplasia. See comment. FRANCISCO/ 04/21/2024 COMMENT B. The results of immunohistochemistry for Helicobacter pylori will be reported separately ([id number]). F. Alcian blue/PAS stain with matched control supports the above diagnosis. MICROSCOPIC DESCRIPTION Slides are reviewed. GROSS DESCRIPTION A. Received in fixative is one container labeled with the patient's name and designated Duodenal bulb biopsy. The specimen consists of one irregular fragment of light bullard soft tissue that measures 0.5 x 0.3 x 0.1 cm. The specimen is totally submitted in one cassette. B. Received in fixative is one container labeled with the patient's name and designated Gastric antrum biopsy. The specimen consists of one irregular fragment of light bullard soft tissue that measures 0.7 x 0.5 x 0.1 cm. The specimen is totally submitted in one cassette. C. Received in fixative is one container labeled with the patient's name and designated Greater curvature polyp biopsy. The specimen consists of multiple irregular fragments of light bullard soft tissue that in aggregate measure 1.0 x 0.6 x 0.1 cm. The specimen is totally submitted in one cassette. D. Received in fixative is one container labeled with the patient's name and designated Fundic polyp. The specimen consists of multiple irregular fragments of light bullard soft tissue that in aggregate measure 2.5 x 1.0 x 0.2 cm. The specimen is totally submitted in one cassette. E. Received in fixative is one container labeled with the patient's name and designated GE junction fold polyp. The specimen consists of multiple irregular fragments of light bullard soft tissue that in aggregate measure 1.0 x 1.0 x 0.2 cm. The specimen is totally submitted in one cassette. F. Received in fixative is one container labeled with the patient's name and designated GE junction biopsy. The specimen consists of one irregular fragment of light bullard soft tissue that measures 0.5 x 0.5 x 0.1 cm. The specimen is totally submitted in one cassette. FRANCISCO/ 04/20/2024 TC:3 CPT:[id number],71277
[2024-04-20 06:44] VITALS: BP 152/92; PULSE 70; RESP 16; TEMP 36.6; O2SAT 98; BMI 61.9
[2024-04-20] MEDS: Lactated Ringers 1,000 ML 15 ML IV (06:53)
[2024-04-20 07:11] LABS: Bedside Glucose 104 mg/dL (74-106)
--- NOTE | 2024-04-20 07:30 | IMM_PTH ---
PATIENT: MAIKOL GALDAMEZ LOC: EN U#:[id number] AGE/SX: 53/F ROOM: RE04/20/[address]: Dr. Dhruv Luna MD : 1970 BED: DIS: 04/20/2024 SPEC #: [id number] RECD: 04/20/24 13:22 STATUS: BECKY REQ #: [id number] GRACIA: 04/20/24 07:[address]: Dhruv Luna DEPT: IMMUNOHISTOCHEMISTRY RECD BY: Venkat Soto ENTERED: 04/20/24 13:23 SP TYPE: IMMUNO OTHR DR: Ann Pisano, [facility], IT PROFESSIONAL-C Tissues: B - Gastric mucous membrane Procedures: H Pylori (initial) PHYSICIAN & INSTITUTION [place] [address] SPECIMEN INFORMATION: Tissue Source: B- Gastric antrum biopsy Clinical Info: GERD Specimen Number: [id number] CPT code: 80790 METHODOLOGY: Deparaffinized sections of prefer/formalin-fixed tissue or PAP/DQ stained slides are incubated with monoclonal/polyclonal antibodies/oligonucleotide probes. Localization is made via biotin free immunoperoxidase method. Appropriate controls are performed and reacted as expected. Results on target cell population are indicated in the following table: RESULTS: ANTIBODY / CLONE RESULT Block B H Pylori (polyclonal) negative These tests were developed and their performance characteristics determined by [facility]. They may not have been cleared or approved by the U.S. Food and Drug Administration. The FDA has determined that such clearance or approval is not necessary. The above immunohistochemical/dualISH markers are ordered and reviewed by the Pathologist. INTERPRETATION: B. Gastric antrum, biopsy: Negative for Helicobacter pylori organisms. FRANCISCO/ 04/21/24
--- NOTE | 2024-04-20 07:36 | PCM.HP.BLA ---
History and Physical Date of Admission: 04/20/24 OFFICE VISIT Date of Service: 02/28/24 MR#: [id number] Acct: [id number] Name: MAIKOL GALDAMEZ Rep #: [id number] : 1970 Provider: Dr. Dhruv Luna MD Age/Sex: 53/F Location: [facility] Status: Signed Intake Vital Signs 09/20/2310:24 02/14/2403:48 02/27/2413:14 Height 5 ft 2 in 5 ft 2 in 5 ft 2 in Weight: 330 lb BMI 60.3 BP 157/89 H Blood Pressure Location Rt radial Position Sitting Respiration 18 Intake Visit Reasons: Gastroesophageal reflux disease (GERD) Chief Complaint: gerd Outdoor Studies Professor Required: No Is patient in pain?: No Allergies No Known Allergies Allergy (Verified 02/28/24 13:14) Medications albuterol sulfate 90 mcg/actuation aerosol inhaler (Ventolin HFA) 1 - 2 puff inhalation Q4H PRN PRN Asthma 11/27/18 [History Confirmed 02/28/24] pantoprazole 40 mg tablet,delayed release 40 mg PO DAILY 12/10/19 [History Confirmed 02/28/24] budesonide-formoterol HFA 160 mcg-4.5 mcg/actuation aerosol inhaler (Symbicort) 2 puff inhalation BID 08/17/22 [History Confirmed 02/28/24] famotidine 20 mg tablet 20 mg PO DAILY PRN gerd 08/17/22 [History Confirmed 02/28/24] losartan 100 mg tablet 100 mg PO DAILY 08/17/22 [History Confirmed 02/28/24] melatonin 10 mg tablet 10 mg PO QHS 08/17/22 [History Confirmed 02/28/24] metoprolol succinate 50 mg tablet,extended release 24 hr 50 mg PO DAILY 08/17/22 [History Confirmed 02/28/24] multivitamin 1 tab PO DAILY 08/17/22 [History Confirmed 02/28/24] omega-3 fatty acids 1,000 mg PO DAILY 08/17/22 [History Confirmed 02/28/24] rosuvastatin 40 mg tablet 40 mg PO DAILY 08/17/22 [History Confirmed 02/28/24] vitamin B complex 1 tab PO DAILY 08/17/22 [History Confirmed 02/28/24] blood sugar diagnostic (True Metrix Glucose Test Strip) 02/15/24 [History Confirmed 02/15/24] blood-glucose meter (True Metrix Glucose Meter) 02/15/24 [History Confirmed 02/15/24] docusate sodium 100 mg capsule 100 mg PO BID 02/15/24 [History Confirmed 02/28/24] hyoscyamine sulfate 0.125 mg disintegrating tablet 0.125 mg PO Q6H PRN abdominal discomfort #12 tabs 02/15/24 [Rx Confirmed 02/28/24] ibuprofen 800 mg tablet 800 mg PO TID PRN PRN pain 02/15/24 [History Confirmed 02/28/24] lancets 33 gauge (Unilet Lancet) 02/15/24 [History Confirmed 02/15/24] polyethylene glycol 3350 17 gram/dose oral powder 17 g PO DAILY 02/15/24 [History Confirmed 02/28/24] promethazine 25 mg tablet 25 mg PO Q6H PRN PRN Nausea #15 TABLETS 02/15/24 [Rx Confirmed 02/28/24] sucralfate 1 gram tablet (Carafate) 1 g PO TID 5 days #15 tabs 02/15/24 [Rx Confirmed 02/28/24] PFSH Medical History Asthma Diabetes mellitus, type II GERD (gastroesophageal reflux disease) CAVAZOS (nonalcoholic steatohepatitis) Surgical History History of History of cholecystectomy Social History (Updated 02/28/24 @ 13:13 by Ronna Zayas) Smoking Status: Former smoker alcohol intake: former substance use type: former substance user and marijuana HPI HPI HPI: Patient is a 53-year-old female who presents for establishing care due to a history of gastroesophageal reflux disease and Rashid's esophagus. They are referred for surgical consultation from the [facility]. Patient also recently had an ER visit for symptoms on 02/15/2024. She shares that these symptoms of, nausea, vomiting, diarrhea, and abdominal pain have largely resolved since stopping Trulicity. In addition to a higher dose of Trulicity she was taking MiraLAX, docusate, and 800 mg ibuprofen and decided to stop all of these medications. She shares that emergency medicine placed her on the medication as well for possible ulcers, but [she] knows [she] does not have an ulcer. She does share that the pain she experienced?last 1 week ago?was similar to the pain that she had a year ago and spontaneously improved when she simply cut out any coffee intake. She states that she still drinks some caffeine with soda intake but largely has limited this intake to 2 sprites per week. In addition to the above symptoms, she confirms that symptoms of both burping and bloating have also improved since discontinuing the Trulicity. Patient remarks of a recent weight loss, however, is a favorable response to Trulicity and she estimates this to be a 20 pounds. She also shares that it is her intent to return to Trulicity but at a lower dose when she has a chance to meet with Mrs. Norris NP. It is apparent from patient's medical record that she has a history of Rashid's esophagus. She shares that she has had 2 prior upper scopes?the first of these was done in [place] in 2017. Ms. Galdamez provides a transcript of the last scope performed 09/02/[address] Vincent in [facility]. On this scope final pathology was consistent with foveolar hyperplasia in the setting of mild gastritis. H. pylori was negative. Patient states that she recently relocated to [place] and is looking to establish care. Towards the end of visit, patient shares that she has a history of nonalcoholic fatty liver disease and is interested to know if bariatric surgery would be felt to make this issue worse. She also wants my opinion?generally speaking since she shares that she likes to eat food a lot. Patient has no history of blood thinner use. Patient is up-to-date on her colonoscopies and, again, per her EMR this last scope was performed 05/12/2021. That scope found a single hyperplastic polyp and ongoing screening was recommended with a follow-up colonoscopy recommended in 10 years Patient's past surgical history consists of just a cholecystectomy and section. ROS General General: Yes weight change and fatigue; No appetite, colon cancer, breast cancer or weakness HEENT HEENT: No difficulty swallowing, eye injury, eye surgery, swollen glands or hoarseness Endo Endocrine: Yes diabetes mellitus; No thyroid disease, thyroid cancer, Hair loss, heat intolerance or cold intolerance Skin Skin: No rash or changing moles Breast Breast: No left breast lump, right breast lump, nipple discharge, breast pain, abnormal mammogram, abnormal US or breast enlargement Musc Musculoskeletal: Yes back problems and arthritis; No rheumatoid arthritis, gout or joint pain Cardio Cardiovascular: Yes high blood pressure; No murmur, pacemaker, heart disease, atrial fibrillation, heart attack, heart stent, palpitations, shortness of breat with exertion or chest pain Psych Psychiatric: Yes depression and anxiety; No hearing voices Resp Respiratory: No shortness of breath, No sleep apnea, No cough, No COPD, Yes asthma, No emphysema and No wheezing Gastro Gastrointestinal: Yes abdominal pain, Yes nausea or vomiting, Yes diarrhea, Yes constipation, No blood in stool, Yes acid reflux, No hemorrhoids, No ulcers, No gallbladder problem and No black,tarry stools [place]ijan Hematologic: No blood thinners, No blood disorders, No bleeding, No anemia and No blood clots Neuro Neurologic: No system reviewed and no additional complaints, except as documented, No as per HPI, No abnormal gait, No abnormal hearing, No abnormal movements, No abnormal speech, No behavioral changes, No burning sensations, No confusion, No convulsions, No disequilibrium, No dizziness, No localized weakness, No frequent falls, No headache(s), No lack of coordination, No loss of vision, No memory loss, No numbness, No other visual disturbances, No radicular pain, No restless legs, No sensory deficit, No syncope, No tingling, No tremor(s), No weakness and No other Exam Const General: cooperative and anxious Orientation: alert, awake and oriented x3 Resp Effort & Inspection: normal respiratory effort GI Inspection: large pannus and obesity Palpation: soft and nontender Assessment and Plan Assessment and Plan (1) GERD (gastroesophageal reflux disease): Qualifiers: Esophagitis bleeding: without hemorrhage Comment: Patient is a 53-year-old female who looks to establish care with a history of gastroesophageal reflux disease and a remote history of Rashid's esophagus. It is noted that on patient's most recent EGD in 2019 she did not have evidence of Rashid's as per the final pathology reviewed by me. She is prescribed pantoprazole for this diagnosis. It is apparent that she has recently improved her clinical picture after some significant GI symptoms related to a higher dose of Trulicity that she self?discontinued. She shares that she is yet to follow-up with her primary care provider on this issue, but also shares that it is her intent to go back to this medication just at a lower dose. She was fairly recently diagnosed with diabetes and states that her blood sugars overall have not been poorly controlled. She describes minimal reflux symptoms at this point and is simply looking to proceed with surveillance as recommended in 2020. When I suggest agreement with this course of action Ms. Galdamez expresses significant reservations about undergoing the procedure given her weight. I tried to reassure her that these procedures are done with a dedicated SALES AND SERVICE SPECIALIST monitoring her vitals and airway at all times. I also shared with her that it should be a positive that we would be looking only to do an upper scope at this setting. Lastly, I did have a brief conversation with her regarding her candidacy for bariatric surgery and suggested that she may benefit to an a number of ways beyond just improving her weight control. She expresses some interest in this conversation, but would like more time to think on it before a referral would be made. Plan: Plan to proceed with surveillance EGD and biopsies for history of Rashid's esophagus at first mutually agreeable date. I have examined the patient and the H&P has been reviewed. There are no clinical changes since date of exam. I did discuss with patient plans for biopsies and how these results will be reported. Further, I have confirmed patient's interest in going forward with bariatric surgery. Will plan to work out the details of the referral following today's procedure. Will now, however, proceed to the endoscopy suite for EGD as discussed in greater detail above
[2024-04-20 08:40] VITALS: BP 134/84; BP 152/92; PULSE 85; RESP 16; TEMP 36.4; O2SAT 95
[2024-04-20 08:45] VITALS: BP 114/58; BP 152/92; PULSE 80; RESP 16; O2SAT 96
--- NOTE | 2024-04-20 08:47 | OP.CCLET_ITS ---
04/20/2024 Ann Pisano [facility], Book Cleaner-c Re : Upper GI endoscopy procedure for Shani Pisano This procedure was performed on March. My impressions and recommendations are as follows: Impressions : - Normal first portion of the duodenum and second portion of the duodenum. No specimens collected. - Nodular mucosa in the duodenal bulb. Biopsied. - Erythematous mucosa in the antrum. Biopsied. - Multiple gastric polyps. Biopsied. - Multiple gastric polyps. Resected and retrieved. - A single gastroesophageal junction polyp. Resected and retrieved. - Z-line regular, 39 cm from the incisors. Biopsied. - Grade II esophageal varices. No specimens collected. - The examination was otherwise normal. Recommendations : - Discharge patient to home [Means]. - Discharge patient to home (via wheelchair). - Resume previous diet today. - No aspirin, ibuprofen, naproxen, or other non-steroidal anti-inflammatory drugs for 2 days after biopsy. - Await pathology results. - Telephone my office for pathology results in 1 week. My findings are described in the full procedure note, which is enclosed. If I can be of further assistance, please feel free to contact me at Doctor phone number(s): , Work: . Sincerely, Dhruv Luna MD 04/20/2024 8:47:07 AM This report has been signed electronically.
--- NOTE | 2024-04-20 08:47 | OP.EGD_ITS ---
Patient Name: Shani Goncalves Procedure Date: 04/20/2024 7:31 AM Date of : 1970 Age: 53 Procedure: Upper GI endoscopy Indications: Surveillance procedure, Gastro-esophageal reflux disease, Surveillance for malignancy due to personal history of Rashid's esophagus Providers: Dhruv Luna MD Referring MD: Ann Pisano [facility], Hospice Nurse Practitioner-c Medicines: See the Anesthesia note for documentation of the administered medications Patient Profile: Refer to note in patient chart for documentation of history and physical. Complications: No immediate complications. Estimated blood loss: Minimal. Procedure: Pre-Anesthesia Assessment: - The heart rate, respiratory rate, oxygen saturations, blood pressure, adequacy of pulmonary ventilation, and response to care were monitored throughout the procedure. After obtaining informed consent, the endoscope was passed under direct vision. Throughout the procedure, the patient's blood pressure, pulse, and oxygen saturations were monitored continuously. The Endoscope was introduced through the mouth, and advanced to the second part of duodenum. The upper GI endoscopy was accomplished without difficulty. The patient tolerated the procedure well. Scope In: 7:52:35 AM Scope Out: 8:32:32 AM Total Procedure Duration Time 0 hours 39 minutes 57 seconds Findings: The first portion of the duodenum and second portion of the duodenum were normal. No biopsies or other specimens were collected for this exam. Localized nodular mucosa was found in the duodenal bulb. Biopsies were taken with a cold forceps for histology. Estimated blood loss was minimal. Localized mildly erythematous mucosa without bleeding was found in the gastric antrum. Biopsies were taken with a cold forceps for Helicobacter pylori testing. Estimated blood loss was minimal. Multiple 2 to 4 mm semi-sessile polyps with no bleeding and no stigmata of recent bleeding were found on the greater curvature of the stomach. Biopsies were taken with a cold forceps for histology. Estimated blood loss was minimal. Multiple 2 to 5 mm semi-pedunculated polyps with no bleeding and no stigmata of recent bleeding were found in the gastric fundus. The polyp was removed with a hot snare. Resection and retrieval were complete using a suction (via the working channel). Estimated blood loss: 3 mL requiring treatment with electrocautery. A single 5 mm semi-pedunculated polyp with no bleeding and no stigmata of recent bleeding was found at the gastroesophageal junction. The polyp was removed with a hot snare. Resection and retrieval were complete. Estimated blood loss: none. The Z-line was regular and was found 39 cm from the incisors. Biopsies were taken with a cold forceps for histology. Estimated blood loss was minimal. Grade II varices were found in the lower third of the esophagus. They were small in size. No biopsies or other specimens were collected for this exam. The exam was otherwise without abnormality. Impression: - Normal first portion of the duodenum and second portion of the duodenum. No specimens collected. - Nodular mucosa in the duodenal bulb. Biopsied. - Erythematous mucosa in the antrum. Biopsied. - Multiple gastric polyps. Biopsied. - Multiple gastric polyps. Resected and retrieved. - A single gastroesophageal junction polyp. Resected and retrieved. - Z-line regular, 39 cm from the incisors. Biopsied. - Grade II esophageal varices. No specimens collected. - The examination was otherwise normal. Recommendation: - Discharge patient to home [Means]. - Discharge patient to home (via wheelchair). - Resume previous diet today. - No aspirin, ibuprofen, naproxen, or other non-steroidal anti-inflammatory drugs for 2 days after biopsy. - Await pathology results. - Telephone my office for pathology results in 1 week. Procedure Code(s): --- Professional --- 09109, Esophagogastroduodenoscopy, flexible, transoral; with removal of tumor(s), polyp(s), or other lesion(s) by snare technique 22285, 59, Esophagogastroduodenoscopy, flexible, transoral; with biopsy, single or multiple Diagnosis Code(s): --- Professional --- K22.70, Rashid's esophagus without dysplasia K31.89, Other diseases of stomach and duodenum K31.7, Polyp of stomach and duodenum K22.82, Esophagogastric junction polyp I85.00, Esophageal varices without bleeding K21.9, Gastro-esophageal reflux disease without esophagitis CPT copyright 2021 [employer]. All rights reserved. The codes documented in this report are preliminary and upon studio grip review may be revised to meet current compliance requirements. Dhruv Luna MD 04/20/2024 8:47:07 AM This report has been signed electronically. Number of Addenda: 0 Note Initiated On: 04/20/2024 7:31 AM
[2024-04-20 08:50] VITALS: BP 114/87; BP 152/92; PULSE 80; RESP 16; TEMP 36.4; O2SAT 95
[2024-04-20 09:03] VITALS: BP 152/92
== END 2024-04-20 09:14 | disposition home or self-care (01) ==
LOC: EN 06:18 → AC 06:19
PROVIDERS: PCP Nurse Practitioner Family; Referring Provider Nurse Practitioner Family; Visit Provider Surgery
PROC: 0DJ08ZZ Inspection of Upper Intestinal Tract, Via Natural or Artificial Opening Endoscopic (ICD-10-PCS; CPT 43235; principal; 2024-04-20 07:25)
DX: I85.00 Esophageal varices without bleeding (principal); E11.9 Type 2 diabetes mellitus without complications; Z87.891 Personal history of nicotine dependence; K31.7 Polyp of stomach and duodenum; J45.909 Unspecified asthma, uncomplicated; K22.70 Barrett's esophagus without dysplasia; I10 Essential (primary) hypertension; Z79.899 Other long term (current) drug therapy; K29.50 Unspecified chronic gastritis without bleeding; Z79.51 Long term (current) use of inhaled steroids; E78.00 Pure hypercholesterolemia, unspecified; K21.00 Gastro-esophageal reflux disease with esophagitis, without bleeding
CPT/HCPCS: 43239; 43251; 82962; 88305; 88312; 88342; J7120; J2405

== ENCOUNTER → 2024-04-28 | Outpatient (CLI) | payer MEDICAID, SELFPAY | END | disposition home or self-care (01) | LOC: SL 10:25 | PROVIDERS: PCP Nurse Practitioner Family; Visit Provider Nurse Practitioner Family | DX: G47.33 Obstructive sleep apnea (adult) (pediatric) (principal) ==

== ENCOUNTER → 2024-07-24 | Outpatient (CLI) | payer MEDICAID, SELFPAY ==
[2024-07-24 12:10] LABS: Absolute Lymphocyte Count 1.52 X10^3/uL (0.83-4.51); Basophil# 0.02 X10^3/uL; Basophil% 0.5 % (0-1); Eosinophil# 0.06 X10^3/uL; Eosinophils% 1.5 % (0-5); Hematocrit 40.6 % (37-47); Hemoglobin 13.6 g/dL (12.0-15.0); Lymphocyte # 1.52 X10^3/ul (0.83-4.51); Lymphocyte % 38.2 % (19-41); Mean Corp Hgb Conc 33.5 g/dL (32-36); Mean Corpuscular Hgb 29.7 pg (27.0-32.0); Mean Corpuscular Volume 88.6 fL (81-99); Mean Platelet Vol. 10.6 fl (6.2-12.0); Monocyte# 0.38 X10^3/uL; Monocyte% 9.5 % (0-10); NRBC Flagged by Analyzer 0 % (0-5); Neutrophil # 1.97 X10^3/uL (2.7-7.7); Neutrophil % 49.5 % (47-70); Platelet Count 171 K/mm3 (150-450); RBC Distribution Width CV 12.7 % (11.6-14.6); RBC Distribution Width SD 40.5 fl (35.1-43.9); Red Blood Count 4.58 M/mm3 (4.2-5.4)
[2024-07-24 13:13] LABS: ALB/GLOB Ratio 1.1 RATIO (0.9-2.4); AST(SGOT) 23 U/L (15-37); Alanine Aminotransfer ALT/SGPT 33 U/L (13-56); Albumin, Serum 3.7 g/dL (3.2-5.0); Alkaline Phosphatase 70 U/L (45-117); Anion Gap 6 (5-15); BUN 12 mg/dL (7-18); BUN/Creat Ratio 11.9 RATIO (10-20); Calcium,Total 9.6 mg/dL (8.5-10.1); Chloride 107 mmol/L (98-107); Creatinine, Serum 1.01 mg/dL (0.55-1.02); EST Glomerular Filtration Rate 61 mL/min (>60); Est Glom Filt Rate - Afr Amer 74 mL/min (>60); Globulin 3.4 g/dL (2.2-4.2); Glucose 102 mg/dL (74-106); Potassium 4.2 mmol/L (3.5-5.1); Protein, Total 7.1 g/dL (6.4-8.2); Sodium Level 141 mmol/L (136-145)
[2024-07-24 13:24] LABS: Microalbumin,Random Urine 20.1 mg/L (NO RANGE EST.)
== END | disposition home or self-care (01) ==
LOC: LAB 11:26
PROVIDERS: PCP Nurse Practitioner Family; Referring Provider Nurse Practitioner Family; Visit Provider Nurse Practitioner Family
DX: I10 Essential (primary) hypertension (principal); E11.65 Type 2 diabetes mellitus with hyperglycemia
CPT/HCPCS: 36415; 80053; 82043; 84443; 85025

== ENCOUNTER → 2024-08-08 | Outpatient (CLI) | payer MEDICAID, SELFPAY ==
[2024-08-08 17:37] LABS: Free T3 2.4 pg/mL (2.18-3.98); T4 Free Direct 0.91 ng/dL (0.76-1.46); Thyroid Stim Hormone (TSH) 0.155 uIU/mL (0.358-3.740)
== END | disposition home or self-care (01) ==
LOC: VSLAB 13:53
PROVIDERS: PCP Nurse Practitioner Family; Visit Provider Nurse Practitioner Family
DX: R94.6 Abnormal results of thyroid function studies (principal)
CPT/HCPCS: 36415; 84439; 84443; 84481

== ENCOUNTER → 2024-11-28 | Outpatient (CLI) | payer MEDICAID, SELFPAY ==
[2024-11-28 16:03] LABS: Free T3 2.4 pg/mL (2.18-3.98); T4 Free Direct 0.84 ng/dL (0.76-1.46)
[2024-12-01 04:06] LABS: Thyroid Peroxidase AB 11 IU/mL (0-34)
== END | disposition home or self-care (01) ==
LOC: LAB 15:01
PROVIDERS: PCP Nurse Practitioner Family; Referring Provider Internal Medicine Endocrinology, Diabetes & Metabolism; Visit Provider Internal Medicine Endocrinology, Diabetes & Metabolism
DX: E04.9 Nontoxic goiter, unspecified (principal); R94.6 Abnormal results of thyroid function studies
CPT/HCPCS: 36415; 84439; 84443; 84481; 86376

== ENCOUNTER → 2024-12-08 | Outpatient (CLI) | payer MEDICAID, SELFPAY ==
--- NOTE | 2024-12-08 14:09 | US_ITS ---
STUDY: THYROID ULTRASOUND REASON FOR EXAM: Female, 54 years old. Firm righ lobe on exam, low TSH TECHNIQUE: Ultrasound evaluation of the thyroid was performed with real-time and static corey-scale imaging. COMPARISON: None. FINDINGS: RIGHT LOBE: The right lobe of the thyroid gland measures 3.5 cm x 1.4 cm x 1 cm. There is a homogeneous echotexture. There are no demonstrated solid, cystic or complex lesions. LEFT LOBE: The left lobe of the thyroid gland is enlarged and measures 5 cm x 2.2 cm by 2.3 cm. There is a homogeneous echotexture. There is a 2.1 cm x 1.8 cm x 1.7 cm hypoechoic solid nodule in the inferior pole of the left lobe. A similar appearing nodule measuring 3 cm x 2.4 signed by 2 cm is seen in the inferior pole as well. Biopsy recommended. ISTHMUS: The isthmus measures 2 mm. The regional lymph nodes are normal. US/Thyroid IMPRESSION: Enlarged left lobe of the thyroid with the 2 solid hypoechoic nodules in the lower pole. Biopsy recommended. Electronically Signed: Sree Mccoy MD at 13:17 EST ,
== END | disposition home or self-care (01) ==
LOC: US 14:08
PROVIDERS: PCP Nurse Practitioner Family; Referring Provider Internal Medicine Endocrinology, Diabetes & Metabolism; Visit Provider Internal Medicine Endocrinology, Diabetes & Metabolism
DX: R94.6 Abnormal results of thyroid function studies (principal); E04.9 Nontoxic goiter, unspecified

== ENCOUNTER → 2025-01-02 | Outpatient (CLI) | payer MEDICAID, SELFPAY ==
--- NOTE | 2025-01-02 13:00 | FLU_PTH ---
PATIENT: MAIKOL GALDAMEZ LOC: [facility] U#:[id number] AGE/SX: 54/F ROOM: RE01/02/[address]: Dr. Dhruv Luna MD : 1970 BED: DIS: 01/02/2025 SPEC #: [id number] RECD: 01/02/25 15:48 STATUS: BECKY REAmanda #: [id number] GRACIA: 01/02/25 13:[address]: Dhruv Luna DEPT: CYTOLOGY RECD BY: Charlotte Orellana ENTERED: 01/03/25 08:34 SP TYPE: Fluid OTHR DR: Ann Pisano, [facility], CASTINGS TRIMMER-C Tissues: A - Thyroid gland, NOS B - Thyroid gland, NOS C - Thyroid gland, NOS D - Thyroid gland, NOS Procedures: Special Stain Group II Surgery Specimen Level IV Cytospin Fluid Cytology Other HEADER OPERATION: Fine needle aspiration of left thyroid nodules PRE-OP DIAGNOSIS: Left thyroid nodules TISSUE SUBMITTED: A- Left medial thyroid nodule fluid, B- Left medial thyroid nodule slides, C- Left lateral inferior thyroid nodule fluid, D- Left lateral inferior nodule slides DIAGNOSIS CYTOLOGY A. Left medial thyroid nodule fluid, fine needle aspiration (cytospins and cellblock): Negative for malignant cells. B. Left medial thyroid nodule, fine needle aspiration (smears): Non-diagnostic specimen, [place] Category I. See comment. C. Left lateral inferior thyroid nodule fluid, fine needle aspiration (cytospins and cellblock): Negative for malignant cells. D. Left lateral inferior thyroid nodule, fine needle aspiration (smears): Non-diagnostic specimen, [place] Category I. See comment. 01/04/2025 COMMENT B. The specimen shows a few clusters of benign follicular cells. The specimen is non-diagnostic due to lack of adequate number of follicular cells. D. The specimen is non-diagnostic due to lack of follicular cells. The [place] System for thyroid diagnostic categorization was used in the evaluation of this case. Correlation with clinical, radiologic findings and appropriate follow up are necessary. CYTOLOGY STUDY Slides are reviewed. CYTOLOGY GROSS A. Received is 30 ml of red-cloudy fluid labeled with the patient's name and and designated per the requisition as Left medial thyroid nodule. Submitted for cytology preparation including cell block. B. Received are 4 smears labeled with the patient's name and designated per the requisition as Left medial thyroid nodule. Submitted for staining. C. Received is 40 ml of red-cloudy fluid labeled with the patient's name and and designated per the requisition as Left lateral inferior thyroid nodule. Submitted for cytology preparation including cell block. D. Received are 4 smears labeled with the patient's name and designated per the requisition as Left lateral inferior thyroid nodule. Submitted for staining. Mr 01/03/2025 TC: Can not code CPT: 61398o4,92039b2
== END | disposition home or self-care (01) ==
PROVIDERS: PCP Nurse Practitioner Family; Visit Provider Surgery
DX: E04.1 Nontoxic single thyroid nodule (principal)
CPT/HCPCS: 88108; 88161; 88305; 88313

== ENCOUNTER → 2025-01-31 | Outpatient (CLI) | payer MEDICAID, SELFPAY ==
--- NOTE | 2025-01-31 09:14 | NM_ITS ---
PROCEDURE: THYROID UPTAKE AND SCAN REASON FOR EXAM: THYROID NODULE. TECHNIQUE: Thyroid uptake calculated at 4 and 24 hours after 325 microcuries I-123 orally as a capsule. Nuclear medicine thyroid scan was also performed. COMPARISON: Ultrasound thyroid dated 12/08/2024. FINDINGS: Thyroid Uptake: 4 hours: 5.1 % (normal range 5 to 25%) 24 hours: % (normal range 5 to 40%) Thyroid Scan: The thyroid gland is poorly imaged due to patient's body habitus. Activity is noted in the thyroid bed. NM/Thyroid Uptake Single or Mult IMPRESSION: 1. Thyroid uptake is in the euthyroid range. 2. Limited thyroid scan due to patient's body habitus. Thyroid gland is vague ly visualized with scattered activity seen in the thyroid bed. Reading Location: [place] [address]
== END | disposition home or self-care (01) ==
LOC: NM 09:14
PROVIDERS: PCP Nurse Practitioner Family; Referring Provider Surgery; Visit Provider Surgery
DX: E04.1 Nontoxic single thyroid nodule (principal); R94.6 Abnormal results of thyroid function studies
CPT/HCPCS: 78012; A9516

== ENCOUNTER → 2025-03-09 | Outpatient (CLI) | payer MEDICAID, SELFPAY ==
--- NOTE | 2025-03-09 10:01 | US_ITS ---
PROCEDURE: Inferior aspect of the left lobe of the thyroid. 03/09/2025 REASON FOR EXAM: THYROID NODULES TECHNIQUE: Ultrasound targeted to the palpable abnormality at the . COMPARISON: Prior examination dated dated December 08, 2024. FINDINGS: Under direct sonographic guidance, the surgeon performed 5 needle biopsies using a 25 gauge and 23 gauge needle. US/FNA 1st Biopsy w/ US IMPRESSION: Successful ultrasound-guided thyroid biopsy. Reading Location: [place] [address]
[2025-03-09] MEDS: Lidocaine 2% (20 ml mdv) 20 ML Vial INFILT (11:20)
--- NOTE | 2025-03-09 11:30 | FLU_PTH ---
PATIENT: MAIKOL GALDAMEZ LOC: U#:[id number] AGE/SX: 54/F ROOM: RE03/09/[address]: Dr. Dhruv Luna MD : 1970 BED: DIS: 03/09/2025 SPEC #: [id number] RECD: 03/09/25 12:05 STATUS: BECKY ARTIE #: [id number] GRACIA: 03/09/25 11:[address]: Dhruv Luna DEPT: CYTOLOGY RECD BY: Karlie Perdomo ENTERED: 03/09/25 12:07 SP TYPE: Fluid OTHR DR: Ann Pisano, [facility], SEED CLEANER OPERATOR-C Tissues: A - Thyroid gland, NOS B - Thyroid gland, NOS Procedures: Special Stain Group II Surgery Specimen Level IV Cytospin Fluid HEADER OPERATION: Ultrasound guided left thyroid biopsy PRE-OP DIAGNOSIS: Left thyroid nodule TISSUE SUBMITTED: A- Left inferior/lateral thyroid nodule, B- Left superior/medial thyroid nodule DIAGNOSIS CYTOLOGY A. Thyroid, FNA - left inferior/lateral: * Unsatisfactory due to insufficient cellular material B. Thyroid, FNA - left superior/medial: * Unsatisfactory due to insufficient cellular material Preliminary studies/adequacy Mostly blood Dr. Park 03/09/2025 COMMENT The specimen is evaluated at the time of biopsy by Dr. Park. Immediate Evaluation = A1- Mostly blood (2 DQ and 2 PAP) A2- Mostly blood ( 2 DQ and 2 PAP) B1- Mostly blood (2 DQ and 2 PAP) B2- Mostly blood )2 DQ and 2 PAP) CYTOLOGY STUDY Slides are reviewed. CYTOLOGY GROSS A. Received is 30 ml of red-cloudy cytolyt with particles and 4 smears fluid labeled with the patient's name and and designated per the requisition as Left inferior/lateral thyroid nodule. Submitted for cytology. B. Received is 30 ml of red-cloudy cytolyt with particles and 4 smears fluid labeled with the patient's name and and designated per the requisition as Left superior/medial thyroid nodule. Submitted for cytology. Mr 03/09/2025 CPT: 58986 x2
--- NOTE | 2025-03-09 19:32 | OP.PCM_ITS ---
Procedures Integumentary 10xxx: [id number] Fna bx w/us gdn 1st les (+[id number] (X2)) Operative Report (Standard) Operative Information Date of Procedure: 03/09/25 Pre-Operative Diagnosis: Suspicious left thyroid nodularity (x 2) Post-Operative Diagnosis: Same Surgery/Procedure Performed: Ultrasound-guided thyroid FNA biopsy x 2 of left thyroid nodules kinesiologist: No Type of Anesthesia: Local (14 mL ) Procedure Start Time: 11:15 Procedure Stop Time: 12:00 Select all DRAINS/GRAFTS/IMPLANTS that apply: None Estimated Blood Loss: 3 Specimen collected: Yes Description of specimen(s) removed: 5 passes were completed per nodule Description of surgery: Indication: Left thyroid nodules After obtaining patient consent and conducting a timeout amongst those present, the procedure was commenced by locating the suspicious nodules in the inferior pole of the left thyroid lobe using ultrasound. Superficially, the skin was cleaned with chlorhexidine and a wheal of local anesthetic was created. A total volume of 14 ml 1% lidocaine was required for this procedure. Then, under ultrasound guidance, multiple passes were made into the inferior lateral thyroid nodule using a 25-gauge needle. Once an adequate specimen was detected within the hub of the needle this was handed off the field to waiting cytopathology. A total of 4 additional passes were made in this manner, all with 25-gauge needles. Some of this specimen was set aside for [employer]/genomic sequencing banking should patient have an atypical cytopathology result. External pressure was applied to the neck to assist with hemostasis. The above process was then repeated with an additional 5 passes for patient's inferior medial nodule. Should be noted that patient overall tolerated the procedure well but given her thick neck and deeply located nodules visualization was challenging and was largely facilitated by a special needle finder mode of the ultrasound machine. A quick examination was made with ultrasound to exclude any evidence of hematoma formation. Then the surface of the neck was cleaned, dried, and a bandage was applied. Patient was gradually returned to the sitting position and after short period of monitoring was dismissed. Wound care instructions and expectations regarding pathologic processing were discussed prior to dismissal. Complications: None Estimated blood loss: 3 ml Surgical Findings: Large, hypoechoic, solid nodules of the left inferior pole that were abutted to 1 another Complications Complications: No
== END | disposition home or self-care (01) ==
LOC: US 09:58
PROVIDERS: PCP Nurse Practitioner Family; Referring Provider Surgery; Visit Provider Surgery
DX: E04.2 Nontoxic multinodular goiter (principal)
CPT/HCPCS: 10005; 10006; 88108; 88305; 88313; A4216

== ENCOUNTER → 2025-03-14 | Outpatient (CLI) | payer MEDICAID, SELFPAY ==
[2025-03-17 07:07] LABS: Thyroglobulin Antibody < 1.0 IU/mL (0.0-0.9); Thyroid Peroxidase AB 14 IU/mL (0-34); Thyroid Stim Immunoglob <0.10 IU/L (0.00-0.55)
== END | disposition home or self-care (01) ==
LOC: LAB 14:10
PROVIDERS: PCP Nurse Practitioner Family; Referring Provider Surgery; Visit Provider Surgery
DX: E04.1 Nontoxic single thyroid nodule (principal); R94.6 Abnormal results of thyroid function studies
CPT/HCPCS: 36415; 84445; 86376; 86800

== ENCOUNTER → 2025-08-28 | Outpatient (CLI) | payer MEDICAID, SELFPAY ==
[2025-08-28 16:54] LABS: Hematocrit 43.3 % (37-47); Hemoglobin 14.2 g/dL (12.0-15.0); Immature Granulocytes Count 0.080 X10^3/uL (0.0-0.0); Mean Corp Hgb Conc 32.8 g/dL (32-36); Mean Corpuscular Volume 90.6 fL (81-99); Mean Platelet Vol. 10.7 fl (6.2-12.0); NRBC Flagged by Analyzer 0 % (0-5); Platelet Count 224 K/mm3 (150-450); RBC Distribution Width CV 13.5 % (11.6-14.6); RBC Distribution Width SD 44.7 fl (35.1-43.9); Red Blood Count 4.78 M/mm3 (4.2-5.4); White Blood Count 8.9 K/mm3 (4.4-11.0)
[2025-08-28 17:33] LABS: Microalbumin,Random Urine < 12.0 mg/L (<20 mg/L)
[2025-08-28 17:51] LABS: AST(SGOT) 24 U/L (<=31); Alanine Aminotransfer ALT/SGPT 26 U/L (<=34); Albumin, Serum 4.7 g/dL (3.5-5.0); Alkaline Phosphatase 69 U/L (35-104); Anion Gap 15 (5-15); BUN 12 mg/dL (4-19); BUN/Creat Ratio 12.3 RATIO (10-20); Calcium,Total 9.8 mg/dL (7.6-11.0); Carbon Dioxide 25.5 mmol/L (21.0-32.0); Chloride 102 mmol/L (98-108); Globulin 2.7 g/dL (2.2-4.2); Glucose 164 mg/dL (70-99); Potassium 3.8 mmol/L (3.3-5.1); Vitamin D,25 Hydroxy 35.7 ng/mL (30-100)
== END | disposition home or self-care (01) ==
LOC: VSLAB 15:30
PROVIDERS: PCP Nurse Practitioner Family; Visit Provider Nurse Practitioner Family
DX: E11.65 Type 2 diabetes mellitus with hyperglycemia (principal); I10 Essential (primary) hypertension; E04.1 Nontoxic single thyroid nodule; E55.9 Vitamin D deficiency, unspecified
CPT/HCPCS: 36415; 80053; 82043; 82306; 83036; 84439; 84443; 85025

== ENCOUNTER → 2025-10-08 | Outpatient (CLI) | payer MEDICAID, SELFPAY ==
--- NOTE | 2025-10-08 15:12 | US_ITS ---
PROCEDURE: THYROID 10/08/2025 REASON FOR EXAM: THYROID ULTRASOUND TECHNIQUE: Procedure Code: USTHY Modality: US Procedure: THYROID COMPARISON: 08 December 2024. FINDINGS: Transcutaneous 2-D grayscale and color Doppler ultrasound of the thyroid gland was performed. MEASUREMENTS: Right lobe: 4.9 x 1.4 x 0.9 cm. Left lobe: 4.9 x 2.9 x 2.3 cm. Isthmus: 2 mm. RIGHT SIDE: Heterogeneous echotexture. No discrete lesion. LEFT SIDE: Heterogeneous echotexture. The inferior left thyroid contains a solid, hypoechoic, wider than tall, lobulated nodule measuring 2 x 2 x 1.5 cm without evidence of echogenic foci. (TR 4) The inferior left thyroid contains a solid, hypoechoic, wider than tall, smooth nodule measuring 2.9 x 2.1 x 1.9 cm without evidence of echogenic foci. (TR 4) ISTHMUS: No evidence of nodule or mass. Normal vascularity without microcalcification. No enlarged lymph nodes within the visualized neck. US/Thyroid IMPRESSION: 1. Heterogenous thyroid which can be seen with autoimmune disorders. 2. Stable multinodular thyroid. TI-RADS 4, MODERATELY SUSPICIOUS. RECOMMENDATIONS: Given that these nodules were already sampled, recommend repeat ultrasound in o ne year for continued surveillance. ACR TI-RADS Guidelines TI RADS 1 - Benign; No FNA TI RADS 2- Not Suspicious; No FNA TI RADS 3- Mildly Suspicious; FNA if >2.5cm or Follow if >1.5cm at 1, 3 and 5 y ears. TI RADS 4- Moderately Suspicious; FNA if >1.5cm or Follow if >1cm at 1, 2, 3 an d 5 years. TI RADS 5- Highly Suspicious; FNA if >1cm or Follow if >0.5cm yearly for up to 5 years. Reference: Shelia FN, Dada WD, Dhaval EG et al. ACR Thyroid Imaging, Repor ting and Data System (TI-RADS): White Paper of the ACR TI-RADS Committee. J Am Reading Location: [id number]
== END | disposition home or self-care (01) ==
LOC: US 15:10
PROVIDERS: PCP Nurse Practitioner Family; Referring Provider Surgery; Visit Provider Surgery
DX: E04.2 Nontoxic multinodular goiter (principal)
CPT/HCPCS: 76536